=== PATIENT | female | born 1935 | race Caucasian/White ===

== ENCOUNTER 2018-10-07 07:39 | Inpatient (IN) ==
--- NOTE | 2018-10-07 14:04 | P.CONURO ---
History of Present Illness Service: Urology Consult date: 10/07/18 Reason for Consult: Left renal dilatation Primary Care Provider: Taco Middleton MD Chief Complaint: Abd pain History of Present Illness: 83y.o F transferred for [facility] to [facility]. She was admitted for abd pain R>L, N/V, no fever. Urology consulted for Left sided renal pelvis dilatation. Possibly has UTI. Her records from [facility] are not available for review She is a pt of Dr Pearl at [facility]. 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 She does have mild urinary retention, last time she was seen by Dr Pearl on and PVR was 220cc. She does get UTIs on/off and recently was given Bactrim for it. Also possibility of her having AK now is not excluded. She does have issues with constipation, last BM had 2d/a Review of Systems All other systems reviewed negative except as stated in HPI PMFSH - History History Provided By: Patient, Family Member - Medical History Medical History: Medical History (Last Reviewed 10/07/18 @ 08:21 by Cintia Amaro RN) Hip fracture Patient denies medical problems - Tobacco History Second Hand Smoke Exposure: No Smoking Status: Never smoker - Alcohol History How Often Do You Have a Drink Containing Alcohol: Never - Substance Use History Substance History: No History of Abuse Medications and Allergies Active Medications: Active Medications Ondansetron HCl (Zofran Odt) 4 mg PO Q6H PRN PRN Reason: nausea Sodium Chloride (Ns Flush) 2 ml IV.FLUSH BID KELVIN Sodium Chloride (Ns Flush) 2 ml IV.FLUSH UNSCH PRN PRN Reason: FLUSH AFTER USING IV ACCESS Allergies Allergy/AdvReac Type Severity Reaction Status Date / Time ciprofloxacin [From Cipro] Allergy Rash Verified 10/07/18 07:55 Home Medications Medication Instructions Recorded Confirmed Type hydrocodone-acetaminophen 1 tab PO Q4-6H PRN 10/07/18 10/07/18 History tetrahydrozoline-zinc [Eye 10/07/18 History Drops(tetrahydroz-zn sulf)] Physical Exam Physical Exam: GENERAL: This is a well-nourished, well-developed patient, in no apparent distress. SKIN: No rashes, ecchymoses or lesions. Cool and dry. HEAD: Atraumatic. Normocephalic. CARDIOVASCULAR: Regular rate and rhythm without murmurs, gallops, or rubs. RESPIRATORY: Clear to auscultation. Breath sounds equal bilaterally. No wheezes , rales, or rhonchi. GASTROINTESTINAL: Abdomen soft, RLQ is more tender. GENITOURINARY: MUSCULOSKELETAL: Extremities without clubbing, cyanosis, or edema. NEUROLOGICAL: Awake and alert. Assessment and Plan - Plan 83y.o F with history as per HPI - No acute intervention needed She has chronic Lt UPJ obstruction which is stable - Continue care as per primary team - Treat UTI as per C&S - Needs additional evaluation for her right sided abd pain Urology remains available as needed if more urological findings will be available and required our recommendations Otherwise pt to f/u with Dr Pearl after d/c Discussed Condition With: Dr Michelle ROYAL attending and pt's RN
--- NOTE | 2018-10-07 14:26 | P.HP ---
History of Present Illness Primary Care Physician: Taco Middleton MD Chief Complaint: Abd pain History of Present Illness: 83-year-old white female being admitted for abdominal pain. Patient was in her usual state of health until this morning when she experienced experiencing right-sided abdominal pain which at its worst was 10/ 10 intensity. She did have some nausea and self-limited vomiting. Reports that she did not take her hydrocodone on her most recent dose time otherwise. Denies any chest pain shortness of breath. Denies any fevers or chills. Reports she had said substantial urinary urgency but no dysuria or pyuria or stone excretion. Her grandson is at the bedside and says that she is very stubborn about seeking medical attention so he was concerned when she wanted to go to the hospital. In the emergency department and [place] the patient had a very minimal white count elevation but noted to have innumerable white blood cells on her urine. Noted to have acute kidney injury with creatinine about 1.2. Noted to be very hypertensive with BP is greater than 200s/100s. Patient was given IV morphine and IV antihypertensives and given Rocephin as well as aspirin. EKG which adamantly reviewed obtained from the ED shows right bundle branch block but no acute findings concerning for ischemia or infarction. 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 Now that the patient is arrived to the main hospital, she feels much better, still has some right-sided pain, and her second troponin is now greater than 2.0. Patient states she takes hydrocodone chronically for osteoarthritis. Says she has history of multiple fractures due to osteoporosis. Says she sees urology for her chronic left renal pelvis issues. Review of Systems All other systems reviewed negative except as stated in HPI PMFSH - History History Provided By: Patient, Family Member - Medical History Medical History: Medical History (Last Updated 10/07/18 @ 14:33 by Good Novoa MD) Hip fracture (Acute) Patient denies medical problems - Family History Family History: Family History (Last Updated 10/07/18 @ 14:33 by Good Novoa MD) Son Cancer - Social History I have reviewed the patient's Social History: Yes - Tobacco History Second Hand Smoke Exposure: No Smoking Status: Never smoker - Alcohol History How Often Do You Have a Drink Containing Alcohol: Never - Substance Use History Substance History: No History of Abuse Medications and Allergies Active Medications: Active Medications Methylnaltrexone [place] (Relistor) 12 mg SQ ONCE ONE Stop: 10/07/18 14:24 Ondansetron HCl (Zofran Odt) 4 mg PO Q6H PRN PRN Reason: nausea Sodium Chloride (Ns Flush) 2 ml IV.FLUSH BID KELVIN Sodium Chloride (Ns Flush) 2 ml IV.FLUSH UNSCH PRN PRN Reason: FLUSH AFTER USING IV ACCESS Allergies Allergy/AdvReac Type Severity Reaction Status Date / Time ciprofloxacin [From Cipro] Allergy Rash Verified 10/07/18 07:55 Home Medications Medication Instructions Recorded Confirmed Type hydrocodone-acetaminophen 1 tab PO Q4-6H PRN 10/07/18 10/07/18 History tetrahydrozoline-zinc [Eye 10/07/18 History Drops(tetrahydroz-zn sulf)] Exam Narrative: VS: afebrile GENERAL: Elderly female, well-nourished, no acute distress at this time SKIN: Warm and dry. EYES: No scleral icterus. No injection or drainage. ENT: No nasal bleeding or discharge. Dry oral mucous membranes. CARDIOVASCULAR: Regular rate and rhythm. no murmurs RESPIRATORY: No accessory muscle use. Clear to auscultation. Breath sounds equal bilaterally. GASTROINTESTINAL: Abdomen is most prominently tender to a mild to moderate extent upon deep palpation over the right upper and lower quadrants, minimally over the epigastrium and suprapubic areas, none on the left : No CVA tenderness to percussion bilaterally Extremities: No clubbing, cyanosis, or edema. No obvious deformities. MUSCULOSKELETAL: adequate muscle bulk and tone for age and habitus NEUROLOGICAL: Awake and alert. No obvious cranial nerve deficits. No facial droop nor slurred speech noted. PSYCHIATRIC: Appropriate mood and affect; insight and judgment normal. Results - Labs Labs: Laboratory Results - last 24 hr 10/07/18 13:38 Troponin I 2.08 H* D Caprini VTE Risk Assessment Caprini VTE Risk Assessment: Moderate/High Risk (score >= 2) Caprini Risk Assessment Model: Point Value = 1 Point Value = 2 Point Value = 3 Point Value = 5 Age 41-60 Minor surgery BMI > 25 kg/m2 Swollen legs Varicose veins or History of unexplained or recurrent spontaneous Oral contraceptives or hormone replacement Sepsis (< 1 month) Serious lung disease, including pneumonia (< 1 month) Abnormal pulmonary function Acute myocardial infarction Congestive heart failure (< 1 month) History of inflammatory bowel disease Medical patient at bed rest Age 61-74 Arthroscopic surgery Major open surgery (> 45 min) Laparoscopic surgery (> 45 min) Malignancy Confined to bed (> 72 hours) Immobilizing plaster cast Central venous access Age >= 75 History of VTE Family history of VTE Factor V Leiden Prothrombin [id number] Lupus anticoagulant Anticardiolipin antibodies Elevated serum homocysteine Heparin-induced thrombocytopenia Other congenital or acquired thrombophilia Stroke (< 1 month) Elective arthroplasty Hip, pelvis, or leg fracture Acute spinal cord injury (< 1 month) Prophylaxis Regimen: Total Risk Factor Score Risk Level Prophylaxis Regimen 0-1 Low Early ambulation 2 Moderate Order ONE of the following: *Sequential Compression Device (SCD) *Heparin 5000 units SQ BID 3-4 Higher Order ONE of the following medications: *Heparin 5000 units SQ TID *Enoxaparin/Lovenox 40 mg SQ daily (WT < 150 kg, CrCl > 30 mL/min) *Enoxaparin/Lovenox 30 mg SQ daily (WT < 150 kg, CrCl > 10-29 mL/min) *Enoxaparin/Lovenox 30 mg SQ BID (WT < 150 kg, CrCl > 30 mL/min) AND/OR *Sequential Compression Device (SCD) 5 or more Highest Order ONE of the following medications: *Heparin 5000 units SQ TID (Preferred with Epidurals) *Enoxaparin/Lovenox 40 mg SQ daily (WT < 150 kg, CrCl > 30 mL/min) *Enoxaparin/Lovenox 30 mg SQ daily (WT < 150 kg, CrCl > 10-29 mL/min) *Enoxaparin/Lovenox 30 mg SQ BID (WT < 150 kg, CrCl > 30 mL/min) AND *Sequential Compression Device (SCD) Assessment and Plan - Plan 83-year-old white female being admitted for abdominal pain Abdominal pain/N/V Multifactorial, constipation plus suspected pyelonephritis -Treat underlying issues, minimize narcotics -IVFs -appreciate urology input, no surgical intervention warranted -chronic left dilated renal pelvis Suspected pyelonephritis Copious WBCs Follow-up cultures, continue Rocephin, may expand antibiotics if symptoms worsen Constipation Enema, relistor given chronic hydrocodone use Hypertensive emergency -Possibly secondary to pain, IV antihypertensives as warranted -may need to start orals BP meds Elevated troponins now > 2.0 -likely 2/2 HTN emerg + ELZA -EKG RBB otherwise neg -Given aspirin in ED, will cover with Lipitor and start heparin drip and consult cardiology to ensure no further ischemic workup is warranted ELZA - IVFs heparin Discharge Planning: possible DC bishop if cleared w/ cards and tolerate po intake.
[2018-10-07 15:47] LABS: Activated Partial Thrombo Time 25.1 sec (23.4-31.7); INR 1.1 Ratio
[2018-10-07] MEDS ORDERED: Heparin 10,000 UNITS/10 ML Vial (for IV use) IV.PUSH STA (16:55)
[2018-10-07] MEDS ORDERED: Methylnaltrexone Inj 12 MG/0.6 ML Vial SQ ONE (17:00)
--- NOTE | 2018-10-07 17:08 | P.CONCA ---
History of Present Illness Service: Cardiology Consult date: 10/07/18 Requesting Physician: Good Novoa Reason for Consult: Elevated Troponin Primary Care Provider: Taco Middleton MD Chief Complaint: Abd pain History of Present Illness: This is a 83-year-old female with a past medical history of osteoporosis and a hip fracture, she denies any other health history. She states that she developed right sided abdominal pain a few days ago that progressively worsened. She attempted to take of the pain at home in hopes that it would go away. She decided to seek treatment in the Emergency Department today due to the 07/22 right sided abdominal pain. She denied any CP, pressure, palpitations, dizziness, edema or SOB. Currently, she only complains of mild right sided abdominal pain that has improved. Review of Systems All other systems reviewed negative except as stated [facility] - History History Provided By: Patient, Family Member - Medical History Medical History: Medical History (Last Updated 10/07/18 @ 14:33 by Good Novoa MD) Hip fracture (Acute) Patient denies medical problems - Family History Family History: Family History (Last Updated 10/07/18 @ 14:33 by Good Novoa MD) Son Cancer - Tobacco History Second Hand Smoke Exposure: No Smoking Status: Never smoker - Alcohol History How Often Do You Have a Drink Containing Alcohol: Never - Substance Use History Substance History: No History of Abuse Medications and Allergies Allergies Allergy/AdvReac Type Severity Reaction Status Date / Time ciprofloxacin [From Cipro] Allergy Rash Verified 10/07/18 07:55 Home Medications Medication Instructions Recorded Confirmed Type hydrocodone-acetaminophen 1 tab PO Q4-6H PRN 10/07/18 10/07/18 History tetrahydrozoline-zinc [Eye 10/07/18 History Drops(tetrahydroz-zn sulf)] Active Medications: Active Medications Aspirin (Aspirin) 325 mg PO DAILY KELVIN Atorvastatin Calcium (Lipitor) 40 mg PO HS KELVIN Heparin Sodium/Dextrose (Heparin/D5w 25,000 U/250 Ml) 25,000 unit in 250 mls @ 6 mls/hr IV.CONT TITRATE PRN; Protocol PRN Reason: Per Protocol Methylnaltrexone [place] (Relistor) 12 mg SQ ONCE ONE Stop: 10/07/18 17:01 Ondansetron HCl (Zofran Odt) 4 mg PO Q6H PRN PRN Reason: nausea Sodium Chloride (Ns Flush) 2 ml IV.FLUSH BID KELVIN Sodium Chloride (Ns Flush) 2 ml IV.FLUSH UNSCH PRN PRN Reason: FLUSH AFTER USING IV ACCESS Exam Vital signs: Intake & Output 10/06/18 10/07/18 10/07/18 18:59 06:59 18:59 Weight 52.5 kg Other: Weight On Admission 52.5 kg - Constitutional no acute distress - Routine HEENT Exam Head: Present: normocephalic Eye: Present: PERRL ENT: Present: mucous membranes moist - Routine Neck Exam Present: supple - Routine Respiratory Exam Present: CTA bilaterally - Routine Cardiovascular Exam Present: S1, S2. Absent: murmur, gallop, rubs - Routine Abdominal Exam Present: normoactive bowel sounds Comments: abdomen is slightly distended. - Routine Extremities Exam Present: edema, full ROM, pulses intact, normal capillary refill. Absent: cyanosis, clubbing Comments: trace edema in the right lower extremity and 1-2+ edema in the left lower extremity. - Routine Skin Exam Present: intact - Routine Neurological Exam Present: oriented X3 Results Cardiac Enzymes 10/07/18 Range/Units 13:38 Troponin I 2.08 H* D (0.02-0.05) ng/mL Coagulation 10/07/18 Range/Units 15:12 PT 11.0 (9.8-11.6) sec APTT 25.1 (23.4-31.7) sec Intake and Output 10/07/18 10/07/18 10/07/18 06:59 14:59 22:59 Other: Weight 52.5 kg Weight On Admission 52.5 kg Patient Weight 10/08/18 06:59 Weight 52.5 kg Assessment and Plan - Assessment (1) Elevated troponin I level Code(s): R74.8 - Abnormal levels of other serum enzymes Status: Acute (2) Urinary tract infection Code(s): N39.0 - Urinary tract infection, site not specified Status: Acute (3) Hydronephrosis of left kidney Code(s): N13.30 - Unspecified hydronephrosis Status: Acute (4) Hip fracture Code(s): S72.009A - Fracture of unspecified part of neck of unspecified femur, initial encounter for closed fracture Status: Acute - Plan Patient's troponin level is elevated, we will monitor serial troponin levels and EKGs. Currently there are no signs of ACS, we will obtain a 2D echo to evaluate LV function. Urology evaluation in progress. Continue to monitor patient on telemetry. We will continue to monitor patient during hospitalization. She will follow up with Dr. Anna, her primary vegetable preparer. The patient was seen and evaluated by Dr. Salazar who participated in care, management and decision making. - Attending Attestation Patient seen and examined. I reviewed and agree with the evaluation and plan as presented. Continue monitoring. Serial enzymes and EKGs. Check echo. (2) Urinary tract infection Qualifiers: Urinary tract infection type: site unspecified Hematuria presence: with hematuria Qualified Code(s): N39.0 - Urinary tract infection, site not specified; R31.9 - Hematuria, unspecified
[2018-10-07] MEDS: Heparin Drip 25,000 UNIT/250 ML BAG IV.CONT PRN (17:43)
[2018-10-08 02:09] LABS: Hematocrit 39.1 % (35.0-46.0); Hemoglobin 13.2 gm/dL (11.6-15.3); Mean Corpuscular HGB Conc 33.7 % (32.0-36.0); Mean Corpuscular Hemoglobin 34.9 pg (27.0-34.0); Mean Corpuscular Volume 103.5 fL (80.0-100.0); Mean Platelet Volume 8.6 fL (7.0-11.0); Platelet Count 185 th/mm3 (150-450); Red Blood Count 3.78 mil/mm3 (4.00-5.30); Red Cell Distribution Width 14.4 % (11.6-17.2); White Blood Count 9.7 th/mm3 (4.0-11.0)
[2018-10-08] MEDS ORDERED: Naloxone Inj 0.4 MG/ML Vial IV.PUSH PRN (10:41)
[2018-10-08] MEDS ORDERED: Acetaminophen 325 MG Tablet PO PRN (10:41)
[2018-10-08] MEDS: dilTIAZem Inj 125 MG in Sodium Chlor 0.9% Inj 100 ML IV.CONT PRN ×2 (11:41→20:18)
[2018-10-08 12:30] LABS: Alanine Aminotransferase 26 U/L (10-53); Alkaline Phosphatase 63 U/L (45-117); Anion Gap 7 meq/L (5-15); Aspartate Aminotransferase 34 U/L (15-37); Blood Urea Nitrogen 19 mg/dL (7-18); Calcium 8.2 mg/dL (8.5-10.1); Carbon Dioxide 27.8 meq/L (21.0-32.0); Chloride 100 meq/L (98-107); Glomerular Filtration Rate 59 mL/min (>89); Glucose,Random 121 mg/dL (74-106); Phosphorus 2.2 mg/dL (2.5-4.9); Potassium 3.9 meq/L (3.5-5.1); Sodium 135 meq/L (136-145); Total Protein 6.5 g/dL (6.4-8.2)
[2018-10-08 12:33] LABS: Troponin I 2.84 ng/mL (0.02-0.05)
[2018-10-08] MEDS: Aspirin 325 MG Tablet PO SCH (12:34)
[2018-10-08] MEDS ORDERED: Potassium Chlor 20 mEq Premix 20 MEQ/100 ML PIGGYBACK IV.SIG ONE (13:05)
[2018-10-08] MEDS ORDERED: Metoprolol Tartrate 25 MG Tablet PO SCH (13:15)
--- NOTE | 2018-10-08 13:32 | ECHRPT ---
Indication: LV FXN CONCLUSIONS Normal left ventricular size. Wall thickness is measured at the upper limits of normal. The left ventricular systolic function is normal with an estimated ejection fraction in the range of 60-65%. The left atrial size is mildly dilated. Mitral annular calcification is present. Mild mitral valve regurgitation. Aortic valve sclerosis is present. Mild aortic valve regurgitation. Tricuspid valve prolapse versus cannot exclude flail tricuspid valve leaflets. Clinical correlation recommended. The estimated pulmonary arterial pressure is 53 mmHg. BP: / HR: Rhythm: MEASUREMENTS (Male / Female) Normal Values Technical Quality: 2D ECHO LV Diastolic Diameter PLAX 4.4 cm 4.2 - 5.9 / 3.9 - 5.3 cm LV Systolic Diameter PLAX 3.4 cm IVS Diastolic Thickness 1.0 cm 0.6 - 1.0 / 0.6 - 0.9 cm LVPW Diastolic Thickness 0.7 cm 0.6 - 1.0 / 0.6 - 0.9 cm LV Relative Wall Thickness 0.4 DOPPLER AV Peak Velocity 202.0 cm/s AV Peak Gradient 16.3 mmHg AI Peak Velocity 434.0 cm/s AI Peak Gradient 75.3 mmHg AI Pressure Half Time 462.0 ms LVOT Peak Velocity 124.0 cm/s LVOT Peak Gradient 6.2 mmHg MV Peak Velocity 161.0 cm/s MV Peak Gradient 10.4 mmHg MV Mean Velocity 66.9 cm/s MV Mean Gradient 2.0 mmHg MR Peak Velocity 583.5 cm/s MR Peak Gradient 136.2 mmHg Mitral E Point Velocity 69.1 cm/s Mitral A Point Velocity 112.0 cm/s Mitral E to A Ratio 0.6 LV E' Lateral Velocity 5.6 cm/s Mitral E to LV E' Lateral Ratio 12.4 LV E' Septal Velocity 6.0 cm/s Mitral E to LV E' Septal Ratio 11.5 TR Peak Velocity 328.0 cm/s TR Peak Gradient 43.0 mmHg Right Atrial Pressure 10.0 mmHg Pulmonary Artery Systolic Pressu 53.0 mmHg Right Ventricular Systolic Press 53.0 mmHg FINDINGS LEFT VENTRICLE Normal left ventricular size. Wall thickness is measured at the upper limits of normal. The left ventricular systolic function is normal with an estimated ejection fraction in the range of 60-65%. RIGHT VENTRICLE Normal right ventricular size and systolic function. LEFT ATRIUM The left atrial size is mildly dilated. RIGHT ATRIUM The right atrial size is normal. ATRIAL SEPTUM Normal atrial septal thickness without atrial level shunting by limited color doppler interrogation. AORTA The aortic root and proximal ascending aorta are normal in size on limited imaging. MITRAL VALVE Mitral annular calcification is present. Mild mitral valve regurgitation. No mitral valve stenosis. AORTIC VALVE Aortic valve sclerosis is present. Mild aortic valve regurgitation. No aortic valve stenosis. TRICUSPID VALVE Mild thickening of the tricuspid valve leaflets. Tricuspid valve prolapse versus cannot exclude flail tricuspid valve leaflets. Clinical correlation recommended. The estimated pulmonary arterial pressure is 53 mmHg. PULMONARY VALVE No pulmonary valve regurgitation or stenosis. VESSELS The inferior vena cava is normal in size. PERICARDIUM No pericardial effusion. Ken Emmanuel (Electronically Signed) Final Date:08 October 2018 13:32
[2018-10-08] MEDS ORDERED: Potassium Phosphate Inj 15 MMOL in Sodium Chlor 0.9% Inj 150 ML IV.SIG ONE (14:00)
--- NOTE | 2018-10-08 14:12 | P.PNCA ---
Subjective Interval history: Patient denies any CP, pressure, palpitations, dizziness, edema or palpitations. Medications and Allergies Active Medications: Active Medications Acetaminophen (Tylenol) 650 mg PO Q6HR PRN PRN Reason: PAIN SCALE 1 TO 2 Hydrocodone Bitart/Acetaminophen ([place] 10/325) 1 tab PO Q6H PRN PRN Reason: PAIN SCALE 6 TO 10 Last Admin: 10/08/18 11:52 Dose: 1 tab Aspirin (Aspirin) 325 mg PO DAILY [facility] Last Admin: 10/08/18 12:34 Dose: Not Given Atorvastatin Calcium (Lipitor) 40 mg PO HS [facility] Cyclobenzaprine HCl (Flexeril) 5 mg PO Q8H PRN PRN Reason: CRAMPS Heparin Sodium/Dextrose (Heparin/D5w 25,000 U/250 Ml) 25,000 unit in 250 mls @ 6 mls/hr IV.CONT TITRATE PRN; Protocol PRN Reason: Per Protocol Last Titration: 10/08/18 02:32 Dose: 700 units/hr, 7 mls/hr Diltiazem HCl 125 mg/ Sodium (Chloride) 125 mls @ 10 mls/hr IV.CONT TITRATE PRN ; Protocol PRN Reason: Per Protocol Last Admin: 10/08/18 11:41 Dose: 10 mg/hr, 10 mls/hr Potassium Phosphate 15 mmol/ (Sodium Chloride) 155 mls @ 38.75 mls/hr IV.SIG ONCE ONE Stop: 10/08/18 17:59 Potassium Chloride (Kcl 20 Meq Premix Inj) 20 meq in 100 mls @ 50 mls/hr IV.SIG ONCE ONE Stop: 10/08/18 15:04 Metoprolol Tartrate (Lopressor) 25 mg PO BID [facility] Naloxone HCl (Narcan Inj) 0.4 mg IV.PUSH UNSCH PRN PRN Reason: SEE LABEL COMMENTS Ondansetron HCl (Zofran Odt) 4 mg PO Q6H PRN PRN Reason: nausea Pantoprazole Sodium (Protonix) 40 mg PO DAILY [facility] Sodium Chloride (Ns Flush) 2 ml IV.FLUSH BID [facility] Last Admin: 10/08/18 11:11 Dose: 2 ml Sodium Chloride (Ns Flush) 2 ml IV.FLUSH UNSCH PRN PRN Reason: FLUSH AFTER USING IV ACCESS Tramadol HCl (Ultram) 50 mg PO Q4H PRN PRN Reason: PAIN SCALE 3 TO 5 Allergies Allergy/AdvReac Type Severity Reaction Status Date / Time ciprofloxacin [From Cipro] Allergy Rash Verified 10/07/18 07:55 Home Medications Medication Instructions Recorded Confirmed Type hydrocodone-acetaminophen 1 tab PO Q4-6H PRN 10/07/18 10/08/18 History tetrahydrozoline-zinc [Eye 10/07/18 History Drops(tetrahydroz-zn sulf)] Physical Exam Vital signs: Vital Signs 10/07/18 15:00 10/07/18 15:03 10/07/18 16:00 Temperature 97.9 F Pulse Rate 92 H 92 H 83 Respiratory Rate 26 H 25 H 18 Blood Pressure 143/64 H 149/65 H Pulse Oximetry 97 96 10/07/18 17:00 10/07/18 18:00 10/07/18 19:00 Temperature Pulse Rate 87 94 H 97 H Respiratory Rate 21 Blood Pressure 160/63 H 143/63 H Pulse Oximetry 99 96 97 10/07/18 19:15 10/07/18 20:00 10/07/18 21:00 Temperature 98.6 F Pulse Rate 93 H 91 H 94 H Respiratory Rate Blood Pressure 132/60 127/93 H 145/65 H Pulse Oximetry 100 98 99 10/07/18 22:00 10/07/18 23:00 10/07/18 23:29 Temperature Pulse Rate 107 H 108 H 101 H Respiratory Rate Blood Pressure 152/68 H 151/88 H Pulse Oximetry 98 95 10/08/18 00:00 10/08/18 01:00 10/08/18 01:01 Temperature 97.7 F Pulse Rate 94 H 88 Respiratory Rate 22 98 H 20 Blood Pressure 144/65 H 150/67 H Pulse Oximetry 99 96 10/08/18 02:00 10/08/18 03:00 10/08/18 03:03 Temperature Pulse Rate 94 H 92 H 96 H Respiratory Rate 24 22 22 Blood Pressure 159/74 H 150/105 H 166/72 H Pulse Oximetry 97 98 98 10/08/18 04:00 10/08/18 06:00 10/08/18 08:00 Temperature 98.0 F Pulse Rate 79 79 Respiratory Rate 21 20 Blood Pressure 123/59 L Pulse Oximetry 98 Intake & Output 10/07/18 10/08/18 10/08/18 18:59 06:59 18:59 Intake Total 240 / 240 Balance 240 / 240 Weight 52.5 kg 52.5 kg Intake: Oral 240 / 240 Other: # Voids 2 4 Date of Last Bowel Movement 10/05/18 10/08/18 10/08/18 # Bowel Movements 3 Weight On Admission 52.5 kg - Constitutional no acute distress - Routine HEENT Exam Head: Present: normocephalic Eye: Present: PERRL ENT: Present: mucous membranes moist - Routine Neck Exam Present: supple - Routine Respiratory Exam Present: CTA bilaterally - Routine Cardiovascular Exam Present: S1, S2, tachycardia, irregular rhythm. Absent: murmur, gallop - Routine Abdominal Exam Present: normoactive bowel sounds - Routine Extremities Exam Present: full ROM, pulses intact, normal capillary refill. Absent: cyanosis, clubbing, edema - Routine Skin Exam Present: intact - Routine Neurological Exam Present: oriented X3 - Detailed Neurological Exam: Coma Scale Eye Opening: Spontaneous Verbal Response: Oriented Motor Response: Obey commands [place] Coma Scale Total: 15 - Routine Psychiatric Exam Present: normal affect Results 10/08/18 02:00 10/08/18 11:45 Cardiac Enzymes 10/07/18 10/07/18 10/08/18 Range/Units 13:38 17:50 11:45 AST 34 (15-37) U/L Troponin I 2.08 H* D 2.72 H* D 2.84 H* D (0.02-0.05) ng/mL Coagulation 10/07/18 10/07/18 10/08/18 Range/Units 15:12 20:35 02:00 PT 11.0 (9.8-11.6) sec APTT 25.1 35.2 H D 53.0 H D (23.4-31.7) sec 10/08/18 Range/Units 08:17 PT (9.8-11.6) sec APTT 52.0 H (23.4-31.7) sec CBC 10/08/18 Range/Units 02:00 WBC 9.7 (4.0-11.0) th/mm3 RBC 3.78 L (4.00-5.30) mil/mm3 Hgb 13.2 (11.6-15.3) gm/dL Hct 39.1 (35.0-46.0) % Plt Count 185 (150-450) th/mm3 Comprehensive Metabolic Panel 10/08/18 Range/Units 11:45 Sodium 135 L (136-145) meq/L Potassium 3.9 (3.5-5.1) meq/L Chloride 100 (98-107) meq/L Carbon Dioxide 27.8 (21.0-32.0) meq/L BUN 19 H (7-18) mg/dL Creatinine 0.91 (0.50-1.00) mg/dL Calcium 8.2 L (8.5-10.1) mg/dL AST 34 (15-37) U/L ALT 26 (10-53) U/L Alkaline Phosphatase 63 (45-117) U/L Total Protein 6.5 D (6.4-8.2) g/dL Albumin 3.0 L D (3.4-5.0) g/dL Intake and Output 10/07/18 10/08/18 10/08/18 22:59 06:59 14:59 Intake Total 240 / 240 Balance 240 / 240 Intake: Oral 240 / 240 Other: # Voids 2 4 Date of Last Bowel Movement 10/07/18 10/08/18 10/08/18 # Bowel Movements 3 Weight 52.5 kg Assessment and Plan - Assessment (1) Atrial fibrillation Code(s): I48.91 - Unspecified atrial fibrillation Status: Acute (2) Elevated troponin I level Code(s): R74.8 - Abnormal levels of other serum enzymes Status: Acute (3) Urinary tract infection Code(s): N39.0 - Urinary tract infection, site not specified Status: Inactive (4) Hydronephrosis of left kidney Code(s): N13.30 - Unspecified hydronephrosis Status: Inactive (5) Hip fracture Code(s): S72.009A - Fracture of unspecified part of neck of unspecified femur, initial encounter for closed fracture Status: Acute - Plan Patient went into atrial fibrillation with RVR earlier today, continue Cardizem gtt for rate control. Continue Heparin gtt for anticoagulation. Patient's vital signs are stable at this time. 2D echo showed preserved LV function EF 60-65%, mild mitral regurgitation and mild aortic regurgitation. Troponin levels continue to increase, we will treat conservatively at this time and continue to monitor. Continue to monitor patient on telemetry. We will continue to monitor patient during hospitalization. She will follow up with Dr. Anna, her primary bark fitter. The patient was seen and evaluated by Dr. Salazar who participated in care, management and decision making. (3) Urinary tract infection Qualifiers: Urinary tract infection type: site unspecified Hematuria presence: with hematuria Qualified Code(s): N39.0 - Urinary tract infection, site not specified; R31.9 - Hematuria, unspecified
[2018-10-08] MEDS: Metoprolol Tartrate 25 MG Tablet PO SCH ×2 (14:22→20:34)
--- NOTE | 2018-10-08 16:50 | P.PNIM ---
Subjective Interval history: Patient complains of neck pain and feeling uncomfortable laying in bed. She has chronic back pain secondary to osteoporosis and osteoarthritis she denies any heart palpitations shortness of breath or any dizziness. She denies any chest pain. Physical Exam Vital signs: Last Vital Signs Temp 98.6 F 10/08/18 12:00 Pulse 114 H 10/08/18 15:00 Resp 16 10/08/18 15:00 BP 99/55 L 10/08/18 14:46 Pulse Ox 98 10/08/18 15:00 Intake & Output 10/06/18 10/07/18 10/08/18 10/09/18 06:59 06:59 06:59 06:59 Intake Total 240 / 240 Balance 240 / 240 Weight 52.5 kg Narrative: This is a frail thin well-developed white female in no acute distress Cardiovascular irregular rate irregular rhythm Lungs relatively clear to auscultation bilaterally Abdomen soft nontender mildly distended positive bowel sounds Alert oriented to person place and time moves bilateral upper and lower extremities Results Labs CBC & Chem 7: 10/08/18 02:00 10/08/18 11:45 Labs: Microbiology 10/07/18 21:30 Stool Stool Occult Blood (ASHLEY) - Final Hemoccult negative Assessment and Plan (1) Atrial fibrillation: Code(s): I48.91 - Unspecified atrial fibrillation Status: Acute (2) Elevated troponin I level: Code(s): R74.8 - Abnormal levels of other serum enzymes Status: Acute (3) Urinary tract infection: Code(s): N39.0 - Urinary tract infection, site not specified Status: Inactive (4) Hydronephrosis of left kidney: Code(s): N13.30 - Unspecified hydronephrosis Status: Inactive (5) Hip fracture: Code(s): S72.009A - Fracture of unspecified part of neck of unspecified femur, initial encounter for closed fracture Status: Acute Plan 83-year-old white female presented for abdominal pain but found to have [id number] trended up, patient with a history of hypertension urgency along with acute kidney injury -continue heparin drip per cardiology. Continue medical management Aspirin, beta-denzel, Lipitor, check fasting lipid profile New onset of atrial fibrillation with rapid ventricular rate-Cardizem drip has been initiated along with starting p.o. metoprolol. Continue heparin, further recognitions per cardiology. Sotalol also started by cardiology 2D echo showed normal ejection fraction left atrial size mildly dilated mild mitral and aortic valve regurgitation Suspected pyelonephritiscontinue with Rocephin, follow with urine culture, preliminary shows gram-negative rods History of constipationstatus post enema, continue with bowel regimen Hypertensive emergency on presentationnow with controlled BP Acute kidney injurynow resolved with IV fluid hydration Chronic back pain on chronic narcoticscontinue pain control with bowel regimen. DVT prophylaxisheparin Progress Note: Quality VTE Deep Vein Thrombosis/Pulmonary Embolism Present on Admission: No _ (1) Atrial fibrillation Qualifiers: Atrial fibrillation type: (2) Urinary tract infection Qualifiers: Encounter type: Hematuria presence: with hematuria Indwelling urinary catheter type: Urinary tract infection type: site unspecified Qualified Code( s): N39.0 - Urinary tract infection, site not specified; R31.9 - Hematuria, unspecified (3) Hip fracture Qualifiers: Encounter type: Fracture type: Open fracture type: Laterality: Fracture healing:
[2018-10-08] MEDS: Sod Chloride 0.9% Inj 1,000 ML IV.SIG SCH (23:53)
[2018-10-09] MEDS: Heparin Drip 25,000 UNIT/250 ML BAG IV.CONT PRN (05:08)
[2018-10-09 06:00] LABS: Baso % (Auto) 0.1 % (0.0-2.0); Eos % (Auto) 0.1 % (0.0-4.0); Hematocrit 33.6 % (35.0-46.0); Hemoglobin 11.7 gm/dL (11.6-15.3); Lymph # (Auto) 0.5 th/mm3 (1.0-4.8); Lymph % (Auto) 4.3 % (9.0-44.0); Mean Corpuscular HGB Conc 34.8 % (32.0-36.0); Mean Corpuscular Hemoglobin 36.4 pg (27.0-34.0); Mean Corpuscular Volume 104.8 fL (80.0-100.0); Mean Platelet Volume 9.3 fL (7.0-11.0); Mono # (Auto) 1.1 th/mm3 (0.0-0.9); Mono % (Auto) 9.9 % (0.0-8.0); Neut # (Auto) 9.1 th/mm3 (1.8-7.7); Neut % (Auto) 85.6 % (16.0-70.0); Platelet Count 165 th/mm3 (150-450); Red Cell Distribution Width 14.5 % (11.6-17.2); White Blood Count 10.7 th/mm3 (4.0-11.0)
[2018-10-09 06:27] LABS: Calcium 8.2 mg/dL (8.5-10.1); Carbon Dioxide 26.2 meq/L (21.0-32.0); Potassium 4.1 meq/L (3.5-5.1)
[2018-10-09 06:29] LABS: Chol/HDL Ratio 1.96 Ratio; HDL Cholesterol 45.2 mg/dL (40.0-60.0)
[2018-10-09] MEDS: Aspirin 325 MG Tablet PO SCH (09:53)
[2018-10-09] MEDS: Sod Chloride 0.9% Inj 1,000 ML IV.SIG SCH ×2 (10:11→21:01)
--- NOTE | 2018-10-09 13:49 | P.PNCA ---
Subjective Interval history: Patient denies any CP, pressure, palpitations, dizziness, edema or SOB. Patient states that she feels pretty good. Medications and Allergies Allergies Allergy/AdvReac Type Severity Reaction Status Date / Time ciprofloxacin [From Cipro] Allergy Rash Verified 10/07/18 07:55 Home Medications Medication Instructions Recorded Confirmed Type hydrocodone-acetaminophen 1 tab PO Q4-6H PRN 10/07/18 10/09/18 History tetrahydrozoline-zinc [Eye 10/07/18 History Drops(tetrahydroz-zn sulf)] Active Medications: Active Medications Acetaminophen (Tylenol) 650 mg PO Q6HR PRN PRN Reason: PAIN SCALE 1 TO 2 Hydrocodone Bitart/Acetaminophen ([place] 10/325) 1 tab PO Q6H PRN PRN Reason: PAIN SCALE 6 TO 10 Last Admin: 10/08/18 18:25 Dose: 1 tab Aspirin (Aspirin) 325 mg PO DAILY [facility] Last Admin: 10/09/18 09:53 Dose: 325 mg Atorvastatin Calcium (Lipitor) 40 mg PO HS [facility] Last Admin: 10/08/18 20:34 Dose: 40 mg Cyclobenzaprine HCl (Flexeril) 5 mg PO Q8H PRN PRN Reason: CRAMPS Heparin Sodium/Dextrose (Heparin/D5w 25,000 U/250 Ml) 25,000 unit in 250 mls @ 6 mls/hr IV.CONT TITRATE PRN; Protocol PRN Reason: Per Protocol Last Admin: 10/09/18 05:08 Dose: 700 units/hr, 7 mls/hr Diltiazem HCl 125 mg/ Sodium (Chloride) 125 mls @ 10 mls/hr IV.CONT TITRATE PRN ; Protocol PRN Reason: Per Protocol Last Titration: 10/09/18 05:30 Dose: 2.5 mg/hr, 2.5 mls/hr Sodium Chloride (Ns Inj) 1,000 mls @ 50 mls/hr IV.SIG .Q20H [facility] Last Admin: 10/09/18 10:11 Dose: 50 mls/hr Naloxone HCl (Narcan Inj) 0.4 mg IV.PUSH UNSCH PRN PRN Reason: SEE LABEL COMMENTS Ondansetron HCl (Zofran Odt) 4 mg PO Q6H PRN PRN Reason: nausea Last Admin: 10/08/18 15:59 Dose: 4 mg Pantoprazole Sodium (Protonix) 40 mg PO DAILY [facility] Last Admin: 10/09/18 09:53 Dose: 40 mg Sodium Chloride (Ns Flush) 2 ml IV.FLUSH BID [facility] Last Admin: 10/09/18 09:55 Dose: 2 ml Sodium Chloride (Ns Flush) 2 ml IV.FLUSH UNSCH PRN PRN Reason: FLUSH AFTER USING IV ACCESS Sotalol HCl (Betapace) 80 mg PO BID [facility] Last Admin: 10/09/18 09:53 Dose: 80 mg Tramadol HCl (Ultram) 50 mg PO Q4H PRN PRN Reason: PAIN SCALE 3 TO 5 Last Admin: 10/08/18 15:55 Dose: 50 mg Physical Exam Vital signs: Vital Signs 10/08/18 14:00 10/08/18 14:01 10/08/18 14:16 Temperature Pulse Rate 122 H 123 H 127 H Respiratory Rate 21 20 40 H Blood Pressure 122/57 L 119/56 L Pulse Oximetry 97 97 98 10/08/18 14:35 10/08/18 14:46 10/08/18 15:00 Temperature Pulse Rate 129 H 115 H 114 H Respiratory Rate 29 H 25 H 16 Blood Pressure 115/65 99/55 L Pulse Oximetry 97 96 98 10/08/18 15:06 10/08/18 15:16 10/08/18 15:19 Temperature Pulse Rate 110 H 100 H 104 H Respiratory Rate 23 20 21 Blood Pressure 102/62 89/72 L 103/60 Pulse Oximetry 96 98 97 10/08/18 15:31 10/08/18 15:46 10/08/18 16:00 Temperature Pulse Rate 103 H 96 H 96 H Respiratory Rate 22 13 30 H Blood Pressure 114/60 114/58 L Pulse Oximetry 98 97 94 L 10/08/18 16:01 10/08/18 16:16 10/08/18 16:31 Temperature Pulse Rate 98 H 98 H Respiratory Rate 25 H 26 H Blood Pressure 101/57 L 115/56 L 116/64 Pulse Oximetry 94 L 96 10/08/18 16:46 10/08/18 17:00 10/08/18 17:01 Temperature Pulse Rate 100 H 96 H 95 H Respiratory Rate 32 H 18 33 H Blood Pressure 125/62 132/59 L Pulse Oximetry 97 97 97 10/08/18 17:16 10/08/18 17:31 10/08/18 17:46 Temperature Pulse Rate 103 H 102 H 100 H Respiratory Rate 28 H 20 22 Blood Pressure 130/65 145/75 H 143/68 H Pulse Oximetry 97 98 98 10/08/18 18:00 10/08/18 18:01 10/08/18 18:16 Temperature Pulse Rate 108 H 107 H 101 H Respiratory Rate 31 H 26 H 20 Blood Pressure 134/77 128/60 Pulse Oximetry 97 96 97 10/08/18 18:25 10/08/18 18:31 10/08/18 18:46 Temperature Pulse Rate 107 H 103 H Respiratory Rate 28 H 28 H 25 H Blood Pressure 122/57 L 101/61 Pulse Oximetry 97 97 10/08/18 19:00 10/08/18 19:01 10/08/18 19:16 Temperature Pulse Rate 100 H 105 H 99 H Respiratory Rate 21 26 H 22 Blood Pressure 112/68 113/65 Pulse Oximetry 97 97 96 10/08/18 19:22 10/08/18 19:31 10/08/18 19:46 Temperature Pulse Rate 104 H 102 H Respiratory Rate 18 23 Blood Pressure 96/57 L 103/57 L Pulse Oximetry 97 96 96 10/08/18 20:00 10/08/18 20:16 10/08/18 20:55 Temperature 98.3 F Pulse Rate 106 H 98 H 109 H Respiratory Rate 25 H 22 18 Blood Pressure 99/74 L 104/57 L 104/57 L Pulse Oximetry 97 95 94 L 10/08/18 21:00 10/08/18 21:05 10/08/18 21:20 Temperature Pulse Rate 96 H 91 H 88 Respiratory Rate 20 14 16 Blood Pressure 107/51 L 117/55 L 93/64 L Pulse Oximetry 94 L 95 95 10/08/18 21:35 10/08/18 22:00 10/08/18 22:20 Temperature Pulse Rate 87 98 H 92 H Respiratory Rate 23 15 15 Blood Pressure 103/56 L 124/59 L 108/54 L Pulse Oximetry 97 90 L 95 10/08/18 22:35 10/08/18 22:50 10/08/18 23:00 Temperature Pulse Rate 82 84 91 H Respiratory Rate 15 25 H 24 Blood Pressure 104/55 L 104/51 L 98/53 L Pulse Oximetry 96 95 97 10/08/18 23:20 10/08/18 23:50 10/09/18 00:00 Temperature Pulse Rate 78 77 76 Respiratory Rate 17 14 17 Blood Pressure 99/51 L 94/60 L 94/60 L Pulse Oximetry 96 95 94 L 10/09/18 00:20 10/09/18 00:50 10/09/18 01:00 Temperature Pulse Rate 83 74 77 Respiratory Rate 21 16 14 Blood Pressure 96/53 L 95/51 L 99/55 L Pulse Oximetry 90 L 95 95 10/09/18 01:20 10/09/18 01:35 10/09/18 01:50 Temperature Pulse Rate 80 79 81 Respiratory Rate 19 16 18 Blood Pressure 93/55 L 89/48 L 105/50 L Pulse Oximetry 96 96 96 10/09/18 02:00 10/09/18 02:20 10/09/18 02:35 Temperature Pulse Rate 80 85 83 Respiratory Rate 19 17 27 H Blood Pressure 91/52 L 96/51 L 102/56 L Pulse Oximetry 96 96 95 10/09/18 02:50 10/09/18 03:00 10/09/18 03:15 Temperature Pulse Rate 81 98 H 100 H Respiratory Rate 17 17 19 Blood Pressure 102/58 L 102/58 L 113/74 Pulse Oximetry 97 97 98 10/09/18 03:20 10/09/18 03:46 10/09/18 04:00 Temperature Pulse Rate 104 H 94 H 97 H Respiratory Rate 19 16 23 Blood Pressure 131/65 127/74 114/64 Pulse Oximetry 99 95 97 10/09/18 04:20 10/09/18 04:35 10/09/18 04:50 Temperature Pulse Rate 98 H 91 H 85 Respiratory Rate 16 15 16 Blood Pressure 121/67 101/56 L 97/56 L Pulse Oximetry 98 97 97 10/09/18 05:00 10/09/18 05:20 10/09/18 05:24 Temperature Pulse Rate 101 H 89 109 H Respiratory Rate 25 H 14 Blood Pressure 111/60 106/55 L Pulse Oximetry 87 L 97 10/09/18 05:35 10/09/18 05:50 10/09/18 05:55 Temperature Pulse Rate 94 H 95 H 107 H Respiratory Rate 18 16 17 Blood Pressure 90/54 L 100/55 L 106/53 L Pulse Oximetry 97 97 97 10/09/18 06:00 10/09/18 06:20 10/09/18 06:35 Temperature Pulse Rate 94 H 97 H 98 H Respiratory Rate 16 16 28 H Blood Pressure 102/56 L 114/53 L 102/54 L Pulse Oximetry 96 96 90 L 10/09/18 06:50 10/09/18 07:00 10/09/18 07:35 Temperature Pulse Rate 100 H 94 H 94 H Respiratory Rate 40 H 24 19 Blood Pressure 111/70 99/53 L 104/71 Pulse Oximetry 91 L 96 96 10/09/18 07:50 10/09/18 08:00 10/09/18 08:20 Temperature 97.8 F Pulse Rate 97 H 98 H Respiratory Rate 36 H 18 Blood Pressure 105/59 L 106/61 100/57 L Pulse Oximetry 88 L 97 10/09/18 08:35 10/09/18 09:00 10/09/18 09:20 Temperature Pulse Rate 98 H Respiratory Rate 18 Blood Pressure 105/55 L 95/51 L 115/57 L Pulse Oximetry 97 10/09/18 09:35 10/09/18 09:50 10/09/18 10:00 Temperature Pulse Rate 114 H Respiratory Rate 18 Blood Pressure 118/58 L 114/48 L 109/60 Pulse Oximetry 96 10/09/18 10:20 10/09/18 10:47 10/09/18 10:50 Temperature Pulse Rate Respiratory Rate Blood Pressure 111/58 L 102/58 L 101/56 L Pulse Oximetry 10/09/18 11:00 10/09/18 11:20 10/09/18 11:35 Temperature Pulse Rate 102 H 107 H Respiratory Rate 18 23 Blood Pressure 91/58 L 100/65 110/71 Pulse Oximetry 98 96 10/09/18 11:50 Temperature Pulse Rate Respiratory Rate Blood Pressure 104/54 L Pulse Oximetry Intake & Output 10/08/18 10/09/18 10/09/18 18:59 06:59 18:59 Intake Total 340 / 340 770 / 770 1450 / 1450 Output Total 325 / 325 125 / 125 Balance 340 / 340 445 / 445 1325 / 1325 Weight 58.5 kg Intake: IV 100 / 100 530 / 530 1000 / 1000 Heparin/D5W 25,000 U/250 mL 25, 250 / 250 000 unit In 250 ml @ 600 UNITS/ HR 6 mls/hr IV.CONT TITRATE PRN Rx#:[id number] Cardizem Inj 125 MG In NS Inj 125 / 125 100 ML @ 10 MG/HR 10 mls/hr IV. CONT TITRATE PRN Rx#:[id number] KCl 20 mEq Premix Inj 20 meq In 100 / 100 100 ml @ 50 mls/hr IV.SIG ONCE ONE Rx#:[id number] Potassium Phosphate Inj 15 MMOL 155 / 155 In NS Inj 150 ML @ 38.75 mls/ hr IV.SIG ONCE ONE Rx#:[id number] NS Inj 1,000 ML @ 50 mls/hr IV. 1000 / 1000 SIG .Q20H [facility] Rx#:[id number] Oral 240 / 240 240 / 240 450 / 450 Output: Urine 325 / 325 125 / 125 Other: # Voids 4 4 1 Date of Last Bowel Movement 10/08/18 10/08/18 10/08/18 # Bowel Movements 3 0 - Constitutional no acute distress - Routine HEENT Exam Head: Present: normocephalic Eye: Present: PERRL ENT: Present: mucous membranes moist - Routine Neck Exam Present: supple - Routine Respiratory Exam Present: CTA bilaterally - Routine Cardiovascular Exam Present: S1, S2, irregular rhythm - Routine Abdominal Exam Present: normoactive bowel sounds - Routine Extremities Exam Present: full ROM, pulses intact, normal capillary refill. Absent: cyanosis, clubbing, edema - Routine Skin Exam Present: intact - Routine Neurological Exam Present: oriented X3 - Detailed Neurological Exam: Coma Scale Eye Opening: Spontaneous Verbal Response: Oriented Motor Response: Obey commands [place] Coma Scale Total: 15 - Routine Psychiatric Exam Present: normal affect Results 10/09/18 05:33 10/09/18 05:33 Cardiac Enzymes 10/07/18 10/07/18 10/08/18 Range/Units 13:38 17:50 11:45 AST 34 (15-37) U/L Troponin I 2.08 H* D 2.72 H* D 2.84 H* D (0.02-0.05) ng/mL Coagulation 10/07/18 10/07/18 10/08/18 Range/Units 15:12 20:35 02:00 PT 11.0 (9.8-11.6) sec APTT 25.1 35.2 H D 53.0 H D (23.4-31.7) sec 10/08/18 10/08/18 10/09/18 Range/Units 08:17 20:46 05:33 PT (9.8-11.6) sec APTT 52.0 H 51.4 H 48.1 H (23.4-31.7) sec Lipids 10/09/18 Range/Units 05:33 Triglycerides 67 (42-150) mg/dL Cholesterol 89 L (120-200) mg/dL HDL Cholesterol 45.2 (40.0-60.0) mg/dL Cholesterol/HDL Ratio 1.96 Ratio CBC 10/08/18 10/09/18 Range/Units 02:00 05:33 WBC 9.7 10.7 (4.0-11.0) th/mm3 RBC 3.78 L 3.20 L (4.00-5.30) mil/mm3 Hgb 13.2 11.7 (11.6-15.3) gm/dL Hct 39.1 33.6 L (35.0-46.0) % Plt Count 185 165 (150-450) th/mm3 Neut # (Auto) 9.1 H (1.8-7.7) th/mm3 Lymph # (Auto) 0.5 L (1.0-4.8) th/mm3 [place] # (Auto) 1.1 H (0.0-0.9) th/mm3 Eos # (Auto) 0.0 (0.0-0.4) th/mm3 Baso # (Auto) 0.0 (0.0-0.2) th/mm3 Comprehensive Metabolic Panel 10/08/18 10/09/18 Range/Units 11:45 05:33 Sodium 135 L 136 (136-145) meq/L Potassium 3.9 4.1 (3.5-5.1) meq/L Chloride 100 103 (98-107) meq/L Carbon Dioxide 27.8 26.2 (21.0-32.0) meq/L BUN 19 H 20 H (7-18) mg/dL Creatinine 0.91 0.85 (0.50-1.00) mg/dL Calcium 8.2 L 8.2 L (8.5-10.1) mg/dL AST 34 (15-37) U/L ALT 26 (10-53) U/L Alkaline Phosphatase 63 (45-117) U/L Total Protein 6.5 D (6.4-8.2) g/dL Albumin 3.0 L D (3.4-5.0) g/dL Intake and Output 10/08/18 10/09/18 10/09/18 22:59 06:59 14:59 Intake Total 620 / 620 490 / 490 1450 / 1450 Output Total 325 / 325 125 / 125 Balance 620 / 620 165 / 165 1325 / 1325 Intake: IV 380 / 380 250 / 250 1000 / 1000 Heparin/D5W 25,000 U/250 mL 25, 250 / 250 000 unit In 250 ml @ 600 UNITS/ HR 6 mls/hr IV.CONT TITRATE PRN Rx#:[id number] Cardizem Inj 125 MG In NS Inj 125 / 125 100 ML @ 10 MG/HR 10 mls/hr IV. CONT TITRATE PRN Rx#:[id number] KCl 20 mEq Premix Inj 20 meq In 100 / 100 100 ml @ 50 mls/hr IV.SIG ONCE ONE Rx#:[id number] Potassium Phosphate Inj 15 MMOL 155 / 155 In NS Inj 150 ML @ 38.75 mls/ hr IV.SIG ONCE ONE Rx#:[id number] NS Inj 1,000 ML @ 50 mls/hr IV. 1000 / 1000 SIG .Q20H [facility] Rx#:[id number] Oral 240 / 240 240 / 240 450 / 450 Output: Urine 325 / 325 125 / 125 Other: # Voids 4 4 1 Date of Last Bowel Movement 10/08/18 10/08/18 10/08/18 # Bowel Movements 3 0 Weight 58.5 kg Assessment and Plan - Assessment (1) Atrial fibrillation Code(s): I48.91 - Unspecified atrial fibrillation Status: Acute (2) Elevated troponin I level Code(s): R74.8 - Abnormal levels of other serum enzymes Status: Acute (3) Hip fracture Code(s): S72.009A - Fracture of unspecified part of neck of unspecified femur, initial encounter for closed fracture Status: Acute - Plan Patient remains in atrial fibrillation, continue sotalol, wean IV diltiazem. Continue anticoagulation with heparin gtt and ASA. No recent angina. Aggressive risk factor modification. 2D echo showed preserved LV function EF 60-65%, mild mitral regurgitation and mild aortic regurgitation. We will continue with current cardiac treatment plan and treat conservatively at this time. Continue to monitor patient on telemetry. We will continue to monitor patient during her hospitalization. She will follow up with Dr. Anna, her primary rocket scientist. The patient was seen and evaluated by Dr. Salazar who participated in care, management and decision making. - Attending Attestation Patient seen and examined. I reviewed and agree with the evaluation and plan as presented. Continue current program with conservative management. Continue IV heparin and baby ASA. Aggressive risk factor modification. F/u w Dr. Anna.
--- NOTE | 2018-10-09 13:49 | P.PNIM ---
Subjective Interval history: Patient is laying down in bed. Currently she does not have any complaints of shortness of breath or chest pain. Physical Exam Vital signs: Vital Signs 10/08/18 13:46 10/08/18 14:00 10/08/18 14:01 Temperature Pulse Rate 121 H 122 H 123 H Respiratory Rate 19 21 20 Blood Pressure 108/70 122/57 L Pulse Oximetry 98 97 97 10/08/18 14:16 10/08/18 14:35 10/08/18 14:46 Temperature Pulse Rate 127 H 129 H 115 H Respiratory Rate 40 H 29 H 25 H Blood Pressure 119/56 L 115/65 99/55 L Pulse Oximetry 98 97 96 10/08/18 15:00 10/08/18 15:06 10/08/18 15:16 Temperature Pulse Rate 114 H 110 H 100 H Respiratory Rate 16 23 20 Blood Pressure 102/62 89/72 L Pulse Oximetry 98 96 98 10/08/18 15:19 10/08/18 15:31 10/08/18 15:46 Temperature Pulse Rate 104 H 103 H 96 H Respiratory Rate 21 22 13 Blood Pressure 103/60 114/60 114/58 L Pulse Oximetry 97 98 97 10/08/18 16:00 10/08/18 16:01 10/08/18 16:16 Temperature Pulse Rate 96 H 98 H Respiratory Rate 30 H 25 H Blood Pressure 101/57 L 115/56 L Pulse Oximetry 94 L 94 L 10/08/18 16:31 10/08/18 16:46 10/08/18 17:00 Temperature Pulse Rate 98 H 100 H 96 H Respiratory Rate 26 H 32 H 18 Blood Pressure 116/64 125/62 Pulse Oximetry 96 97 97 10/08/18 17:01 10/08/18 17:16 10/08/18 17:31 Temperature Pulse Rate 95 H 103 H 102 H Respiratory Rate 33 H 28 H 20 Blood Pressure 132/59 L 130/65 145/75 H Pulse Oximetry 97 97 98 10/08/18 17:46 10/08/18 18:00 10/08/18 18:01 Temperature Pulse Rate 100 H 108 H 107 H Respiratory Rate 22 31 H 26 H Blood Pressure 143/68 H 134/77 Pulse Oximetry 98 97 96 10/08/18 18:16 10/08/18 18:25 10/08/18 18:31 Temperature Pulse Rate 101 H 107 H Respiratory Rate 20 28 H 28 H Blood Pressure 128/60 122/57 L Pulse Oximetry 97 97 10/08/18 18:46 10/08/18 19:00 10/08/18 19:01 Temperature Pulse Rate 103 H 100 H 105 H Respiratory Rate 25 H 21 26 H Blood Pressure 101/61 112/68 Pulse Oximetry 97 97 97 10/08/18 19:16 10/08/18 19:22 10/08/18 19:31 Temperature Pulse Rate 99 H 104 H Respiratory Rate 22 18 Blood Pressure 113/65 96/57 L Pulse Oximetry 96 97 96 10/08/18 19:46 10/08/18 20:00 10/08/18 20:16 Temperature 98.3 F Pulse Rate 102 H 106 H 98 H Respiratory Rate 23 25 H 22 Blood Pressure 103/57 L 99/74 L 104/57 L Pulse Oximetry 96 97 95 10/08/18 20:55 10/08/18 21:00 10/08/18 21:05 Temperature Pulse Rate 109 H 96 H 91 H Respiratory Rate 18 20 14 Blood Pressure 104/57 L 107/51 L 117/55 L Pulse Oximetry 94 L 94 L 95 10/08/18 21:20 10/08/18 21:35 10/08/18 22:00 Temperature Pulse Rate 88 87 98 H Respiratory Rate 16 23 15 Blood Pressure 93/64 L 103/56 L 124/59 L Pulse Oximetry 95 97 90 L 10/08/18 22:20 10/08/18 22:35 10/08/18 22:50 Temperature Pulse Rate 92 H 82 84 Respiratory Rate 15 15 25 H Blood Pressure 108/54 L 104/55 L 104/51 L Pulse Oximetry 95 96 95 10/08/18 23:00 10/08/18 23:20 10/08/18 23:50 Temperature Pulse Rate 91 H 78 77 Respiratory Rate 24 17 14 Blood Pressure 98/53 L 99/51 L 94/60 L Pulse Oximetry 97 96 95 10/09/18 00:00 10/09/18 00:20 10/09/18 00:50 Temperature Pulse Rate 76 83 74 Respiratory Rate 17 21 16 Blood Pressure 94/60 L 96/53 L 95/51 L Pulse Oximetry 94 L 90 L 95 10/09/18 01:00 10/09/18 01:20 10/09/18 01:35 Temperature Pulse Rate 77 80 79 Respiratory Rate 14 19 16 Blood Pressure 99/55 L 93/55 L 89/48 L Pulse Oximetry 95 96 96 10/09/18 01:50 10/09/18 02:00 10/09/18 02:20 Temperature Pulse Rate 81 80 85 Respiratory Rate 18 19 17 Blood Pressure 105/50 L 91/52 L 96/51 L Pulse Oximetry 96 96 96 10/09/18 02:35 10/09/18 02:50 10/09/18 03:00 Temperature Pulse Rate 83 81 98 H Respiratory Rate 27 H 17 17 Blood Pressure 102/56 L 102/58 L 102/58 L Pulse Oximetry 95 97 97 10/09/18 03:15 10/09/18 03:20 10/09/18 03:46 Temperature Pulse Rate 100 H 104 H 94 H Respiratory Rate 19 19 16 Blood Pressure 113/74 131/65 127/74 Pulse Oximetry 98 99 95 10/09/18 04:00 10/09/18 04:20 10/09/18 04:35 Temperature Pulse Rate 97 H 98 H 91 H Respiratory Rate 23 16 15 Blood Pressure 114/64 121/67 101/56 L Pulse Oximetry 97 98 97 10/09/18 04:50 10/09/18 05:00 10/09/18 05:20 Temperature Pulse Rate 85 101 H 89 Respiratory Rate 16 25 H 14 Blood Pressure 97/56 L 111/60 106/55 L Pulse Oximetry 97 87 L 97 10/09/18 05:24 10/09/18 05:35 10/09/18 05:50 Temperature Pulse Rate 109 H 94 H 95 H Respiratory Rate 18 16 Blood Pressure 90/54 L 100/55 L Pulse Oximetry 97 97 10/09/18 05:55 10/09/18 06:00 10/09/18 06:20 Temperature Pulse Rate 107 H 94 H 97 H Respiratory Rate 17 16 16 Blood Pressure 106/53 L 102/56 L 114/53 L Pulse Oximetry 97 96 96 10/09/18 06:35 10/09/18 06:50 10/09/18 07:00 Temperature Pulse Rate 98 H 100 H 94 H Respiratory Rate 28 H 40 H 24 Blood Pressure 102/54 L 111/70 99/53 L Pulse Oximetry 90 L 91 L 96 10/09/18 07:35 10/09/18 07:50 10/09/18 08:00 Temperature 97.8 F Pulse Rate 94 H 97 H 98 H Respiratory Rate 19 36 H 18 Blood Pressure 104/71 105/59 L 106/61 Pulse Oximetry 96 88 L 97 10/09/18 08:20 10/09/18 08:35 10/09/18 09:00 Temperature Pulse Rate 98 H Respiratory Rate 18 Blood Pressure 100/57 L 105/55 L 95/51 L Pulse Oximetry 97 10/09/18 09:20 10/09/18 09:35 10/09/18 09:50 Temperature Pulse Rate Respiratory Rate Blood Pressure 115/57 L 118/58 L 114/48 L Pulse Oximetry 10/09/18 10:00 10/09/18 10:20 10/09/18 10:47 Temperature Pulse Rate 114 H Respiratory Rate 18 Blood Pressure 109/60 111/58 L 102/58 L Pulse Oximetry 96 10/09/18 10:50 10/09/18 11:00 10/09/18 11:20 Temperature Pulse Rate 102 H Respiratory Rate 18 Blood Pressure 101/56 L 91/58 L 100/65 Pulse Oximetry 98 10/09/18 11:35 10/09/18 11:50 Temperature Pulse Rate 107 H Respiratory Rate 23 Blood Pressure 110/71 104/54 L Pulse Oximetry 96 Intake & Output 10/08/18 10/09/18 10/09/18 18:59 06:59 18:59 Intake Total 340 / 340 770 / 770 1450 / 1450 Output Total 325 / 325 125 / 125 Balance 340 / 340 445 / 445 1325 / 1325 Weight 58.5 kg Intake: IV 100 / 100 530 / 530 1000 / 1000 Heparin/D5W 25,000 U/250 mL 25, 250 / 250 000 unit In 250 ml @ 600 UNITS/ HR 6 mls/hr IV.CONT TITRATE PRN Rx#:[id number] Cardizem Inj 125 MG In NS Inj 125 / 125 100 ML @ 10 MG/HR 10 mls/hr IV. CONT TITRATE PRN Rx#:[id number] KCl 20 mEq Premix Inj 20 meq In 100 / 100 100 ml @ 50 mls/hr IV.SIG ONCE ONE Rx#:[id number] Potassium Phosphate Inj 15 MMOL 155 / 155 In NS Inj 150 ML @ 38.75 mls/ hr IV.SIG ONCE ONE Rx#:[id number] NS Inj 1,000 ML @ 50 mls/hr IV. 1000 / 1000 SIG .Q20H KELVIN Rx#:[id number] Oral 240 / 240 240 / 240 450 / 450 Output: Urine 325 / 325 125 / 125 Other: # Voids 4 4 1 Date of Last Bowel Movement 10/08/18 10/08/18 10/08/18 # Bowel Movements 3 0 Narrative: General patient in no acute distress, denies chest pain HEENT extraocular movements are intact, clear oropharyngeal mucosa, no JVD Cardiovascular S1-S2 audible, irregularly irregular rhythm Respiratory clear to auscultation bilaterally Abdomen soft, nontender, nondistended, normal bowel sounds Extremities 2+ distal pulses Neuro patient moves all 4 extremities, sensation is intact bilaterally Results - Labs CBC & Chem 7: 10/09/18 05:33 10/09/18 05:33 Laboratory Results - last 24 hr 10/08/18 10/09/18 10/09/18 20:46 05:33 05:33 WBC 10.7 RBC 3.20 L Hgb 11.7 Hct 33.6 L MCV 104.8 H MCH 36.4 H MCHC 34.8 RDW 14.5 Plt Count 165 MPV 9.3 Neut % (Auto) 85.6 H Lymph % (Auto) 4.3 L [place] % (Auto) 9.9 H Eos % (Auto) 0.1 Baso % (Auto) 0.1 Neut # (Auto) 9.1 H Lymph # (Auto) 0.5 L [place] # (Auto) 1.1 H Eos # (Auto) 0.0 Baso # (Auto) 0.0 WBC Differential . Differential Comment Auto diff final APTT 51.4 H Sodium 136 Potassium 4.1 Chloride 103 Carbon Dioxide 26.2 Anion Gap 7 BUN 20 H Creatinine 0.85 Estimated GFR 64 L Random Glucose 101 Calcium 8.2 L Triglycerides 67 Cholesterol 89 L LDL Cholesterol, Calc 30 HDL Cholesterol 45.2 Cholesterol/HDL Ratio 1.96 10/09/18 05:33 WBC RBC Hgb Hct MCV MCH MCHC RDW Plt Count MPV Neut % (Auto) Lymph % (Auto) [place] % (Auto) Eos % (Auto) Baso % (Auto) Neut # (Auto) Lymph # (Auto) [place] # (Auto) Eos # (Auto) Baso # (Auto) WBC Differential Differential Comment APTT 48.1 H Sodium Potassium Chloride Carbon Dioxide Anion Gap BUN Creatinine Estimated GFR Random Glucose Calcium Triglycerides Cholesterol LDL Cholesterol, Calc HDL Cholesterol Cholesterol/HDL Ratio Assessment and Plan - Assessment (1) Atrial fibrillation Code(s): I48.91 - Unspecified atrial fibrillation Status: Acute (2) Elevated troponin I level Code(s): R74.8 - Abnormal levels of other serum enzymes Status: Acute (3) Urinary tract infection Code(s): N39.0 - Urinary tract infection, site not specified Status: Inactive (4) Hydronephrosis of left kidney Code(s): N13.30 - Unspecified hydronephrosis Status: Inactive (5) Hip fracture Code(s): S72.009A - Fracture of unspecified part of neck of unspecified femur, initial encounter for closed fracture Status: Acute - Plan This patient is an 83-year-old female with a history of hip fracture otherwise no other documented past medical history. The patient presented to our hospital with abdominal pain and hypertensive emergency. She was subsequently found to have an elevated troponin. During this hospitalization the patient was also found to be in atrial fibrillation with rapid ventricular rate and cardiology has been monitoring the patient. 1. Non-ST segment elevation PR 2. Atrial fibrillation with rapid ventricular rate The patient presented with abdominal pain as mentioned above. Troponins were elevated at 2.0 and showed an up trend. I do not see the initial EKG in the chart however as per documentation initial EKG showed a right bundle branch block but no acute findings concerning for ischemia or an infarction. Cardiology was consulted to evaluate the patient. Currently the patient is on aspirin, metoprolol, statin, heparin drip. 2D echocardiogram was done which shows preserved LV function with an ejection fraction of approximately 60%. Diltiazem drip and sotalol have also been started by the cardiology team as the patient went into atrial fibrillation with rapid ventricular rate. We will follow-up with cardiology for the recommendations. Continue to monitor on telemetry, current heart rate in the low 100s. 3. Suspected pyelonephritis Urine culture will be followed up per the [facility] shows gram-negative rods. Continue IV Rocephin. 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 No intervention recommended for now. We will follow-up final results of cultures. 4. Acute kidney injury Resolved after the initiation of IV fluids. 5. Chronic back pain Continue current pain medication regimen DVT prophylaxis, patient is currently on heparin drip. (3) Urinary tract infection Qualifiers: Urinary tract infection type: site unspecified Hematuria presence: with hematuria Qualified Code(s): N39.0 - Urinary tract infection, site not specified; R31.9 - Hematuria, unspecified
--- NOTE | 2018-10-09 20:45 | ECG ---
Date Performed: 10/08/2018 Time Performed: 16:46:08 PTAGE: 83 years EKG: ATRIAL FIBRILLATION RIGHT BUNDLE BRANCH BLOCK ABNORMAL ECG PREVIOUS TRACING : 10/08/2018 12.33 DOCTOR: Nancy Brown Interpretating Date/Time 10/09/2018 20:40:59
--- NOTE | 2018-10-09 20:50 | ECG ---
Date Performed: 10/08/2018 Time Performed: 12:33:27 PTAGE: 83 years EKG: ATRIAL FIBRILLATION WITH RAPID VENTRICULAR RESPONSE INDETERMINATE AXIS RIGHT BUNDLE BRANCH BLOCK ABNORMAL ECG NO PREVIOUS TRACING DOCTOR: Nancy Brown Interpretating Date/Time 10/09/2018 20:43:26
--- NOTE | 2018-10-09 20:52 | ECG ---
Date Performed: 10/08/2018 Time Performed: 10:15:00 PTAGE: 83 years EKG: Atrial fibrillation with uncontrolled ventricular response. Right bundle branch block Infer ior/lateral ST-T changes may be due to myocardial ischemia Abnormal ECG NO PREVIOUS TRACING DOCTOR: Nancy Brown Interpretating Date/Time 10/09/2018 20:44:52
[2018-10-09] MEDS: dilTIAZem Inj 125 MG in Sodium Chlor 0.9% Inj 100 ML IV.CONT PRN (21:35)
[2018-10-10] MEDS: Sod Chloride 0.9% Inj 1,000 ML IV.SIG SCH (05:36)
[2018-10-10 06:16] LABS: Hematocrit 31.2 % (35.0-46.0); Hemoglobin 10.8 gm/dL (11.6-15.3); Mean Corpuscular HGB Conc 34.7 % (32.0-36.0); Mean Corpuscular Hemoglobin 36.5 pg (27.0-34.0); Mean Corpuscular Volume 105.1 fL (80.0-100.0); Mean Platelet Volume 9.3 fL (7.0-11.0); Platelet Count 161 th/mm3 (150-450); Red Blood Count 2.97 mil/mm3 (4.00-5.30); Red Cell Distribution Width 14.2 % (11.6-17.2); White Blood Count 6.7 th/mm3 (4.0-11.0)
[2018-10-10 06:40] LABS: Calcium 8.1 mg/dL (8.5-10.1); Carbon Dioxide 28.1 meq/L (21.0-32.0); Magnesium 2.3 mg/dL (1.5-2.5); Potassium 3.8 meq/L (3.5-5.1)
--- NOTE | 2018-10-10 10:15 | P.PNIM ---
Subjective Interval history: Patient laying down in bed. She is very talkative this morning. No complaints of chest pain or palpitations. No other complaints from the patient this morning. Physical Exam Vital signs: Vital Signs 10/09/18 10:20 10/09/18 10:47 10/09/18 10:50 Temperature Pulse Rate Respiratory Rate Blood Pressure 111/58 L 102/58 L 101/56 L Pulse Oximetry 10/09/18 11:00 10/09/18 11:20 10/09/18 11:35 Temperature Pulse Rate 102 H 107 H Respiratory Rate 18 23 Blood Pressure 91/58 L 100/65 110/71 Pulse Oximetry 98 96 10/09/18 11:50 10/09/18 19:00 10/09/18 20:00 Temperature 98.4 F Pulse Rate 112 H 121 H Respiratory Rate 31 H 24 Blood Pressure 104/54 L 118/67 141/67 H Pulse Oximetry 95 97 10/09/18 20:11 10/09/18 21:00 10/09/18 21:15 Temperature Pulse Rate 105 H 105 H Respiratory Rate 22 23 Blood Pressure 116/60 101/71 Pulse Oximetry 100 98 96 10/09/18 21:30 10/09/18 21:45 10/09/18 22:00 Temperature Pulse Rate 100 H 95 H 89 Respiratory Rate 22 19 19 Blood Pressure 106/71 117/53 L 112/56 L Pulse Oximetry 93 L 97 97 10/09/18 22:15 10/09/18 22:30 10/09/18 22:45 Temperature Pulse Rate 83 89 88 Respiratory Rate 18 18 23 Blood Pressure 103/60 105/63 124/56 L Pulse Oximetry 98 95 94 L 10/09/18 23:00 10/09/18 23:15 10/09/18 23:30 Temperature Pulse Rate 91 H 85 82 Respiratory Rate 21 20 18 Blood Pressure 100/55 L 100/57 L 101/53 L Pulse Oximetry 96 96 96 10/09/18 23:45 10/10/18 00:00 10/10/18 00:15 Temperature Pulse Rate 88 80 84 Respiratory Rate 19 18 19 Blood Pressure 100/50 L 89/53 L 100/51 L Pulse Oximetry 96 97 96 10/10/18 00:30 10/10/18 00:45 10/10/18 01:00 Temperature Pulse Rate 86 92 H 95 H Respiratory Rate 22 19 12 Blood Pressure 111/58 L 108/51 L 116/54 L Pulse Oximetry 95 94 L 97 10/10/18 01:15 10/10/18 01:30 10/10/18 01:45 Temperature Pulse Rate 96 H 93 H 101 H Respiratory Rate 19 20 25 H Blood Pressure 122/56 L 130/60 132/66 Pulse Oximetry 96 97 94 L 10/10/18 02:00 10/10/18 02:15 10/10/18 02:30 Temperature Pulse Rate 100 H 99 H 103 H Respiratory Rate 19 19 24 Blood Pressure 125/60 117/64 128/64 Pulse Oximetry 95 96 93 L 10/10/18 02:45 10/10/18 03:00 10/10/18 03:15 Temperature Pulse Rate 102 H 94 H 94 H Respiratory Rate 28 H 31 H 18 Blood Pressure 126/71 120/57 L 95/54 L Pulse Oximetry 93 L 90 L 96 10/10/18 03:30 10/10/18 03:45 10/10/18 04:00 Temperature Pulse Rate 83 87 85 Respiratory Rate 18 18 19 Blood Pressure 80/44 L 92/53 L 88/53 L Pulse Oximetry 97 98 97 10/10/18 05:32 Temperature Pulse Rate 78 Respiratory Rate Blood Pressure Pulse Oximetry Intake & Output 10/09/18 10/10/18 10/10/18 18:59 06:59 18:59 Intake Total 1890 / 1890 1605 / 1605 Output Total 275 / 275 700 / 700 Balance 1615 / 1615 905 / 905 Weight 59.7 kg Intake: IV 1000 / 1000 1125 / 1125 Cardizem Inj 125 MG In NS Inj 125 / 125 100 ML @ 10 MG/HR 10 mls/hr IV. CONT TITRATE PRN Rx#:[id number] NS Inj 1,000 ML @ 50 mls/hr IV. 1000 / 1000 1000 / 1000 SIG .Q20H KELVIN Rx#:[id number] Oral 890 / 890 480 / 480 Output: Urine 275 / 275 700 / 700 Other: # Voids 2 4 Date of Last Bowel Movement 10/09/18 10/10/18 10/09/18 # Bowel Movements 2 # Incontinent Bowel Movements 1 Narrative: General patient in no acute distress, denies chest pain HEENT extraocular movements are intact, clear oropharyngeal mucosa, no JVD Cardiovascular S1-S2 audible, irregularly irregular rhythm Respiratory clear to auscultation bilaterally Abdomen soft, nontender, nondistended, normal bowel sounds Extremities 2+ distal pulses Neuro patient moves all 4 extremities, sensation is intact bilaterally Results - Labs CBC & Chem 7: 10/10/18 05:10 10/10/18 05:10 Laboratory Results - last 24 hr 10/10/18 10/10/18 10/10/18 05:10 05:10 05:10 WBC 6.7 RBC 2.97 L Hgb 10.8 L Hct 31.2 L MCV 105.1 H MCH 36.5 H MCHC 34.7 RDW 14.2 Plt Count 161 MPV 9.3 APTT 44.1 H Sodium 141 Potassium 3.8 Chloride 107 Carbon Dioxide 28.1 Anion Gap 6 BUN 16 Creatinine 0.83 Estimated GFR 65 L Random Glucose 97 Calcium 8.1 L Magnesium 2.3 Assessment and Plan - Assessment (1) Atrial fibrillation Code(s): I48.91 - Unspecified atrial fibrillation Status: Acute (2) Elevated troponin I level Code(s): R74.8 - Abnormal levels of other serum enzymes Status: Acute (3) Hip fracture Code(s): S72.009A - Fracture of unspecified part of neck of unspecified femur, initial encounter for closed fracture Status: Acute - Plan This patient is an 83-year-old female with a history of hip fracture otherwise no other documented past medical history. The patient presented to our hospital with abdominal pain and hypertensive emergency. She was subsequently found to have an elevated troponin. During this hospitalization the patient was also found to be in atrial fibrillation with rapid ventricular rate and cardiology has been monitoring the patient. 10/10/18 Patient's heart rate currently under control on cardizem Gtt, metoprolol. No chest pain. Cardiology following the patient. Will discuss case with cardiology in regards to transitioning the patient to PO cardizem and transferring the patient out of the ICU. She is also currently on Heparin gtt which will be continued for now. I will discuss this with Cardiology to see if they plan to have the patient undergo a cardiac cath, if not I would like to switch the patient to an oral anticoagulant. Titrate off of supplemental oxygen, patient's oxygen sats are 98% on 2 L. Case and plan discussed with the patient's nurse at bedside. A call will be placed to cardiology in order to discuss the plan. Continue Asa, statin, BB, Cardizem, heparin gtt. Stop IV rocephin after todays dose. 1. Non-ST segment elevation SC 2. Atrial fibrillation with rapid ventricular rate The patient presented with abdominal pain as mentioned above. Troponins were elevated at 2.0 and showed an up trend. I do not see the initial EKG in the chart however as per documentation initial EKG showed a right bundle branch block but no acute findings concerning for ischemia or an infarction. Cardiology was consulted to evaluate the patient. Currently the patient is on aspirin, metoprolol, statin, heparin drip. 2D echocardiogram was done which shows preserved LV function with an ejection fraction of approximately 60%. Diltiazem drip and sotalol have also been started by the cardiology team as the patient went into atrial fibrillation with rapid ventricular rate. We will follow-up with cardiology for the recommendations. Continue to monitor on telemetry, current heart rate in the low 100s. Monitor electrolytes and replace as needed. 3. UTI I do not believe the patient has pyelonephritis. Urine culture shows e coli. Continue IV Rocephin for today, will discontinue tomorrow. 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 No intervention recommended for now. We will follow-up final results of cultures. 4. Acute kidney injury Resolved after the initiation of IV fluids. 5. Chronic back pain Continue current pain medication regimen DVT prophylaxis, patient is currently on heparin drip.
--- NOTE | 2018-10-10 10:39 | P.PNCA ---
Subjective Interval history: Denies chest pain or shortness of breath. Resting comfortably in bed without distress Medications and Allergies Allergies Allergy/AdvReac Type Severity Reaction Status Date / Time ciprofloxacin [From Cipro] Allergy Rash Verified 10/07/18 07:55 Home Medications Medication Instructions Recorded Confirmed Type hydrocodone-acetaminophen 1 tab PO Q4-6H PRN 10/07/18 10/09/18 History tetrahydrozoline-zinc [Eye 10/07/18 History Drops(tetrahydroz-zn sulf)] Active Medications: Active Medications Acetaminophen (Tylenol) 650 mg PO Q6HR PRN PRN Reason: PAIN SCALE 1 TO 2 Hydrocodone Bitart/Acetaminophen ([place] 10/325) 1 tab PO Q6H PRN PRN Reason: PAIN SCALE 6 TO 10 Last Admin: 10/08/18 18:25 Dose: 1 tab Aspirin (Aspirin Chew) 81 mg PO DAILY [facility] Last Admin: 10/10/18 08:09 Dose: 81 mg Atorvastatin Calcium (Lipitor) 40 mg PO HS [facility] Last Admin: 10/09/18 20:57 Dose: 40 mg Cyclobenzaprine HCl (Flexeril) 5 mg PO Q8H PRN PRN Reason: CRAMPS Heparin Sodium/Dextrose (Heparin/D5w 25,000 U/250 Ml) 25,000 unit in 250 mls @ 6 mls/hr IV.CONT TITRATE PRN; Protocol PRN Reason: Per Protocol Last Titration: 10/09/18 20:59 Dose: 700 units/hr, 7 mls/hr Diltiazem HCl 125 mg/ Sodium (Chloride) 125 mls @ 10 mls/hr IV.CONT TITRATE PRN ; Protocol PRN Reason: Per Protocol Last Titration: 10/10/18 01:25 Dose: 5 mg/hr, 5 mls/hr Sodium Chloride (Ns Inj) 1,000 mls @ 50 mls/hr IV.SIG .Q20H [facility] Last Admin: 10/10/18 05:36 Dose: 50 mls/hr Naloxone HCl (Narcan Inj) 0.4 mg IV.PUSH UNSCH PRN PRN Reason: SEE LABEL COMMENTS Ondansetron HCl (Zofran Odt) 4 mg PO Q6H PRN PRN Reason: nausea Last Admin: 10/08/18 15:59 Dose: 4 mg Pantoprazole Sodium (Protonix) 40 mg PO DAILY [facility] Last Admin: 10/10/18 08:09 Dose: 40 mg Sodium Chloride (Ns Flush) 2 ml IV.FLUSH BID [facility] Last Admin: 10/10/18 08:10 Dose: 2 ml Sodium Chloride (Ns Flush) 2 ml IV.FLUSH UNSCH PRN PRN Reason: FLUSH AFTER USING IV ACCESS Sotalol HCl (Betapace) 80 mg PO BID [facility] Last Admin: 10/10/18 08:10 Dose: 80 mg Tramadol HCl (Ultram) 50 mg PO Q4H PRN PRN Reason: PAIN SCALE 3 TO 5 Last Admin: 10/08/18 15:55 Dose: 50 mg Physical Exam Vital signs: Vital Signs 10/09/18 10:47 10/09/18 10:50 10/09/18 11:00 Temperature Pulse Rate 102 H Respiratory Rate 18 Blood Pressure 102/58 L 101/56 L 91/58 L Pulse Oximetry 98 10/09/18 11:20 10/09/18 11:35 10/09/18 11:50 Temperature Pulse Rate 107 H Respiratory Rate 23 Blood Pressure 100/65 110/71 104/54 L Pulse Oximetry 96 10/09/18 19:00 10/09/18 20:00 10/09/18 20:11 Temperature 98.4 F Pulse Rate 112 H 121 H Respiratory Rate 31 H 24 Blood Pressure 118/67 141/67 H Pulse Oximetry 95 97 100 10/09/18 21:00 10/09/18 21:15 10/09/18 21:30 Temperature Pulse Rate 105 H 105 H 100 H Respiratory Rate 22 23 22 Blood Pressure 116/60 101/71 106/71 Pulse Oximetry 98 96 93 L 10/09/18 21:45 10/09/18 22:00 10/09/18 22:15 Temperature Pulse Rate 95 H 89 83 Respiratory Rate 19 19 18 Blood Pressure 117/53 L 112/56 L 103/60 Pulse Oximetry 97 97 98 10/09/18 22:30 10/09/18 22:45 10/09/18 23:00 Temperature Pulse Rate 89 88 91 H Respiratory Rate 18 23 21 Blood Pressure 105/63 124/56 L 100/55 L Pulse Oximetry 95 94 L 96 10/09/18 23:15 10/09/18 23:30 10/09/18 23:45 Temperature Pulse Rate 85 82 88 Respiratory Rate 20 18 19 Blood Pressure 100/57 L 101/53 L 100/50 L Pulse Oximetry 96 96 96 10/10/18 00:00 10/10/18 00:15 10/10/18 00:30 Temperature Pulse Rate 80 84 86 Respiratory Rate 18 19 22 Blood Pressure 89/53 L 100/51 L 111/58 L Pulse Oximetry 97 96 95 10/10/18 00:45 10/10/18 01:00 10/10/18 01:15 Temperature Pulse Rate 92 H 95 H 96 H Respiratory Rate 19 12 19 Blood Pressure 108/51 L 116/54 L 122/56 L Pulse Oximetry 94 L 97 96 10/10/18 01:30 10/10/18 01:45 10/10/18 02:00 Temperature Pulse Rate 93 H 101 H 100 H Respiratory Rate 20 25 H 19 Blood Pressure 130/60 132/66 125/60 Pulse Oximetry 97 94 L 95 10/10/18 02:15 10/10/18 02:30 10/10/18 02:45 Temperature Pulse Rate 99 H 103 H 102 H Respiratory Rate 19 24 28 H Blood Pressure 117/64 128/64 126/71 Pulse Oximetry 96 93 L 93 L 10/10/18 03:00 10/10/18 03:15 10/10/18 03:30 Temperature Pulse Rate 94 H 94 H 83 Respiratory Rate 31 H 18 18 Blood Pressure 120/57 L 95/54 L 80/44 L Pulse Oximetry 90 L 96 97 10/10/18 03:45 10/10/18 04:00 10/10/18 05:32 Temperature Pulse Rate 87 85 78 Respiratory Rate 18 19 Blood Pressure 92/53 L 88/53 L Pulse Oximetry 98 97 Intake & Output 10/09/18 10/10/18 10/10/18 18:59 06:59 18:59 Intake Total 1890 / 1890 1605 / 1605 Output Total 275 / 275 700 / 700 Balance 1615 / 1615 905 / 905 Weight 59.7 kg Intake: IV 1000 / 1000 1125 / 1125 Cardizem Inj 125 MG In NS Inj 125 / 125 100 ML @ 10 MG/HR 10 mls/hr IV. CONT TITRATE PRN Rx#:[id number] NS Inj 1,000 ML @ 50 mls/hr IV. 1000 / 1000 1000 / 1000 SIG .Q20H [facility] Rx#:[id number] Oral 890 / 890 480 / 480 Output: Urine 275 / 275 700 / 700 Other: # Voids 2 4 Date of Last Bowel Movement 10/09/18 10/10/18 10/09/18 # Bowel Movements 2 # Incontinent Bowel Movements 1 - Constitutional no acute distress - Routine HEENT Exam Head: Present: normocephalic, atraumatic Eye: Present: EOMI ENT: Present: mucous membranes moist - Routine Neck Exam Present: supple, full ROM. Absent: JVD - Routine Respiratory Exam Present: CTA bilaterally - Routine Cardiovascular Exam Present: S1, S2, irregular rhythm - Routine Abdominal Exam Present: soft, normoactive bowel sounds. Absent: tenderness - Routine Extremities Exam Present: pulses intact, normal capillary refill. Absent: cyanosis, clubbing, edema - Routine Skin Exam Present: dry, warm. Absent: cyanosis - Routine Neurological Exam Present: alert, oriented X3 Results 10/10/18 05:10 10/10/18 05:10 Cardiac Enzymes 10/08/18 Range/Units 11:45 AST 34 (15-37) U/L Troponin I 2.84 H* D (0.02-0.05) ng/mL Coagulation 10/08/18 10/09/18 10/10/18 Range/Units 20:46 05:33 05:10 APTT 51.4 H 48.1 H 44.1 H (23.4-31.7) sec Lipids 10/09/18 Range/Units 05:33 Triglycerides 67 (42-150) mg/dL Cholesterol 89 L (120-200) mg/dL HDL Cholesterol 45.2 (40.0-60.0) mg/dL Cholesterol/HDL Ratio 1.96 Ratio CBC 10/09/18 10/10/18 Range/Units 05:33 05:10 WBC 10.7 6.7 (4.0-11.0) th/mm3 RBC 3.20 L 2.97 L (4.00-5.30) mil/mm3 Hgb 11.7 10.8 L (11.6-15.3) gm/dL Hct 33.6 L 31.2 L (35.0-46.0) % Plt Count 165 161 (150-450) th/mm3 Neut # (Auto) 9.1 H (1.8-7.7) th/mm3 Lymph # (Auto) 0.5 L (1.0-4.8) th/mm3 [place] # (Auto) 1.1 H (0.0-0.9) th/mm3 Eos # (Auto) 0.0 (0.0-0.4) th/mm3 Baso # (Auto) 0.0 (0.0-0.2) th/mm3 Comprehensive Metabolic Panel 10/08/18 10/09/18 10/10/18 Range/Units 11:45 05:33 05:10 Sodium 135 L 136 141 (136-145) meq/L Potassium 3.9 4.1 3.8 (3.5-5.1) meq/L Chloride 100 103 107 (98-107) meq/L Carbon Dioxide 27.8 26.2 28.1 (21.0-32.0) meq/L BUN 19 H 20 H 16 (7-18) mg/dL Creatinine 0.91 0.85 0.83 (0.50-1.00) mg/dL Calcium 8.2 L 8.2 L 8.1 L (8.5-10.1) mg/dL AST 34 (15-37) U/L ALT 26 (10-53) U/L Alkaline Phosphatase 63 (45-117) U/L Total Protein 6.5 D (6.4-8.2) g/dL Albumin 3.0 L D (3.4-5.0) g/dL Intake and Output 10/09/18 10/10/18 10/10/18 22:59 06:59 14:59 Intake Total 565 / 565 1480 / 1480 Output Total 150 / 150 700 / 700 Balance 415 / 415 780 / 780 Intake: IV 125 / 125 1000 / 1000 Cardizem Inj 125 MG In NS Inj 125 / 125 100 ML @ 10 MG/HR 10 mls/hr IV. CONT TITRATE PRN Rx#:[id number] NS Inj 1,000 ML @ 50 mls/hr IV. 1000 / 1000 SIG .Q20H [facility] Rx#:[id number] Oral 440 / 440 480 / 480 Output: Urine 150 / 150 700 / 700 Other: # Voids 2 4 Date of Last Bowel Movement 10/09/18 10/10/18 10/09/18 # Bowel Movements 2 # Incontinent Bowel Movements 1 Weight 59.7 kg Assessment and Plan - Plan Patient remains in atrial fibrillation with rate controlled, continue sotalol, discontinue IV diltiazem. Continue anticoagulation with Lovenox subcu. DC heparin. Continue low-dose ASA. Denies angina. Continue Lipitor. 2D echo showed preserved LV function EF 60-65%, mild mitral regurgitation and mild aortic regurgitation. We will continue with current cardiac treatment plan and treat conservatively [ also per her wishes] at this time. Continue to monitor patient on telemetry. We will continue to monitor patient during her hospitalization. She will follow up with Dr. Anna, her primary blender conveyor operator who will be seeing her Friday morning. The patient was seen and evaluated by Dr. Manzanares who participated in care, management and decision making. Discussed Condition With: Patient and Daughter Neelam by phone
--- NOTE | 2018-10-10 17:45 | ECG ---
Date Performed: 10/10/2018 Time Performed: 11:51:40 PTAGE: 83 years EKG: Atrial fibrillation. Right axis deviation Right bundle branch block Lateral infarct - age u ndetermined Inferior T wave changes are nonspecific Abnormal ECG PREVIOUS TRACING : 10/09/2018 17.42 Since the previous tracing, no significant change noted DOCTOR: Jf Acosta Interpretating Date/Time 10/10/2018 17:43:43
[2018-10-10] MEDS: Enoxaparin Inj 40 MG/0.4 ML Syringe SQ SCH (17:46)
--- NOTE | 2018-10-10 18:30 | ECG ---
Date Performed: 10/09/2018 Time Performed: 17:42:01 PTAGE: 83 years EKG: ATRIAL FIBRILLATION WITH RAPID VENTRICULAR RESPONSE RIGHT BUNDLE BRANCH BLOCK ABNORMAL ECG PREVIOUS TRACING : 10/08/2018 16.46 Since the previous tracing, no significant change noted DOCTOR: Jf Acosta Interpretating Date/Time 10/10/2018 18:27:54
[2018-10-10] MEDS ORDERED: ALPRAZolam 0.25 MG Tablet PO SCH (23:15)
[2018-10-11 06:26] LABS: Calcium 8.2 mg/dL (8.5-10.1); Carbon Dioxide 27.6 meq/L (21.0-32.0); Magnesium 2.2 mg/dL (1.5-2.5); Potassium 3.6 meq/L (3.5-5.1)
[2018-10-11 06:37] LABS: Thyroid Stimulating Hormone 1.45 uIU/mL (0.358-3.740)
[2018-10-11] MEDS: Enoxaparin Inj 40 MG/0.4 ML Syringe SQ SCH ×2 (06:43→17:38)
--- NOTE | 2018-10-11 12:04 | P.PNCA ---
Subjective Interval history: Denies chest pain or shortness of breath. Her ventricular response rate has been variable but more on the high side. Medications and Allergies Active Medications: Active Medications Acetaminophen (Tylenol) 650 mg PO Q6HR PRN PRN Reason: PAIN SCALE 1 TO 2 Hydrocodone Bitart/Acetaminophen ([place] 10/325) 1 tab PO Q6H PRN PRN Reason: PAIN SCALE 6 TO 10 Last Admin: 10/08/18 18:25 Dose: 1 tab Aspirin (Aspirin Chew) 81 mg PO DAILY [facility] Last Admin: 10/11/18 08:21 Dose: 81 mg Atorvastatin Calcium (Lipitor) 40 mg PO HS [facility] Last Admin: 10/10/18 21:14 Dose: 40 mg Cyclobenzaprine HCl (Flexeril) 5 mg PO Q8H PRN PRN Reason: CRAMPS Enoxaparin Sodium (Lovenox Inj) 40 mg SQ Q12H [facility] Last Admin: 10/11/18 06:43 Dose: 40 mg Naloxone HCl (Narcan Inj) 0.4 mg IV.PUSH UNSCH PRN PRN Reason: SEE LABEL COMMENTS Ondansetron HCl (Zofran Odt) 4 mg PO Q6H PRN PRN Reason: nausea Last Admin: 10/08/18 15:59 Dose: 4 mg Pantoprazole Sodium (Protonix) 40 mg PO DAILY [facility] Last Admin: 10/11/18 08:21 Dose: 40 mg Sodium Chloride (Ns Flush) 2 ml IV.FLUSH BID [facility] Last Admin: 10/11/18 08:21 Dose: 2 ml Sodium Chloride (Ns Flush) 2 ml IV.FLUSH UNSCH PRN PRN Reason: FLUSH AFTER USING IV ACCESS Sotalol HCl (Betapace) 120 mg PO BID [facility] Last Admin: 10/11/18 08:21 Dose: 120 mg Tramadol HCl (Ultram) 50 mg PO Q4H PRN PRN Reason: PAIN SCALE 3 TO 5 Last Admin: 10/08/18 15:55 Dose: 50 mg Allergies Allergy/AdvReac Type Severity Reaction Status Date / Time ciprofloxacin [From Cipro] Allergy Rash Verified 10/07/18 07:55 Home Medications Medication Instructions Recorded Confirmed Type hydrocodone-acetaminophen 1 tab PO Q4-6H PRN 10/07/18 10/09/18 History tetrahydrozoline-zinc [Eye 10/07/18 History Drops(tetrahydroz-zn sulf)] Physical Exam Vital signs: Vital Signs 10/10/18 12:00 10/10/18 12:30 10/10/18 12:54 Temperature 98.7 F Pulse Rate 81 85 99 H Respiratory Rate 27 H 40 H 29 H Blood Pressure 93/72 L 147/68 H 100/50 L Pulse Oximetry 90 L 68 L 10/10/18 13:00 10/10/18 14:00 10/10/18 15:00 Temperature Pulse Rate 98 H 101 H 107 H Respiratory Rate 31 H 34 H 23 Blood Pressure 103/58 L 99/66 L 113/54 L Pulse Oximetry 84 L 74 L 88 L 10/10/18 16:00 10/10/18 17:00 10/10/18 17:32 Temperature 98.6 F Pulse Rate 114 H 112 H 119 H Respiratory Rate 25 H 26 H 30 H Blood Pressure 122/58 L 131/85 Pulse Oximetry 92 L 90 L 90 L 10/10/18 18:00 10/10/18 19:00 10/10/18 20:22 Temperature 98.6 F Pulse Rate 124 H 121 H 127 H Respiratory Rate 23 33 H 20 Blood Pressure 150/68 H 116/62 Pulse Oximetry 94 L 93 L 10/10/18 20:23 10/10/18 21:00 10/10/18 22:00 Temperature Pulse Rate 120 H 116 H 125 H Respiratory Rate 15 24 23 Blood Pressure 111/66 134/72 135/60 Pulse Oximetry 86 L 99 10/11/18 00:00 10/11/18 00:26 10/11/18 01:00 Temperature Pulse Rate 117 H 123 H 120 H Respiratory Rate 27 H 21 20 Blood Pressure 120/59 L Pulse Oximetry 92 L 97 96 10/11/18 01:51 10/11/18 02:12 10/11/18 02:13 Temperature Pulse Rate 123 H 124 H Respiratory Rate 32 H 26 H Blood Pressure 152/101 H 134/64 Pulse Oximetry 89 L 10/11/18 02:30 10/11/18 02:48 10/11/18 03:00 Temperature Pulse Rate 118 H 116 H 118 H Respiratory Rate 21 21 17 Blood Pressure 105/55 L 102/70 Pulse Oximetry 92 L 90 L 91 L 10/11/18 03:18 10/11/18 03:48 10/11/18 04:00 Temperature Pulse Rate 123 H 123 H 123 H Respiratory Rate 18 14 19 Blood Pressure 105/57 L 93/70 L Pulse Oximetry 91 L 94 L 93 L 10/11/18 04:18 10/11/18 04:48 10/11/18 05:05 Temperature Pulse Rate 114 H 125 H 122 H Respiratory Rate 20 19 Blood Pressure 111/63 128/75 Pulse Oximetry 92 L 91 L 87 L 10/11/18 05:18 10/11/18 05:48 10/11/18 06:00 Temperature Pulse Rate 124 H 115 H 122 H Respiratory Rate 23 20 20 Blood Pressure 126/77 123/56 L Pulse Oximetry 98 97 97 10/11/18 06:18 10/11/18 06:48 10/11/18 07:00 Temperature Pulse Rate 110 H 120 H 109 H Respiratory Rate 21 23 23 Blood Pressure 107/55 L 115/56 L Pulse Oximetry 94 L 94 L 94 L 10/11/18 07:18 10/11/18 07:48 10/11/18 08:00 Temperature 97.5 F L Pulse Rate 112 H 114 H 116 H Respiratory Rate 22 23 22 Blood Pressure 118/68 116/67 Pulse Oximetry 96 96 96 10/11/18 08:18 10/11/18 08:48 10/11/18 09:06 Temperature Pulse Rate 112 H 109 H 109 H Respiratory Rate 20 22 Blood Pressure 127/58 L 123/72 Pulse Oximetry 96 98 10/11/18 10:00 Temperature Pulse Rate 103 H Respiratory Rate Blood Pressure Pulse Oximetry Intake & Output 10/10/18 10/11/18 10/11/18 18:59 06:59 18:59 Intake Total 660 / 660 950 / 950 Output Total 800 / 800 5 / 5 Balance -140 / -140 945 / 945 Weight 59.2 kg Intake: IV 400 / 400 NS Inj 1,000 ML @ 50 mls/hr IV. 400 / 400 SIG .Q20H [facility] Rx#:[id number] Oral 660 / 660 550 / 550 Output: Urine 800 / 800 Stool 5 / 5 Other: # Voids 6 Date of Last Bowel Movement 10/10/18 10/11/18 10/11/18 # Bowel Movements 1 - Constitutional no acute distress - Routine HEENT Exam Head: Present: normocephalic, atraumatic - Routine Neck Exam Present: supple. Absent: JVD, thyromegaly - Routine Respiratory Exam Comments: Decreased breath sounds more on the left base with bilateral crepitations one third the way up. - Routine Cardiovascular Exam Comments: S1 and S2 are variable in intensity and irregular. Faint S4 gallop. - Routine Abdominal Exam Present: soft, normoactive bowel sounds - Routine Extremities Exam Absent: cyanosis, clubbing, edema - Routine Skin Exam Present: intact - Routine Neurological Exam Present: alert, oriented X3 Results 10/10/18 05:10 10/11/18 05:15 Coagulation 10/10/18 Range/Units 05:10 APTT 44.1 H (23.4-31.7) sec CBC 10/10/18 Range/Units 05:10 WBC 6.7 (4.0-11.0) th/mm3 RBC 2.97 L (4.00-5.30) mil/mm3 Hgb 10.8 L (11.6-15.3) gm/dL Hct 31.2 L (35.0-46.0) % Plt Count 161 (150-450) th/mm3 Comprehensive Metabolic Panel 10/10/18 10/11/18 Range/Units 05:10 05:15 Sodium 141 140 (136-145) meq/L Potassium 3.8 3.6 (3.5-5.1) meq/L Chloride 107 106 (98-107) meq/L Carbon Dioxide 28.1 27.6 (21.0-32.0) meq/L BUN 16 13 (7-18) mg/dL Creatinine 0.83 0.91 (0.50-1.00) mg/dL Calcium 8.1 L 8.2 L (8.5-10.1) mg/dL Intake and Output 10/10/18 10/11/18 10/11/18 22:59 06:59 14:59 Intake Total 1060 / 1060 550 / 550 Output Total 800 / 800 5 / 5 Balance 260 / 260 545 / 545 Intake: IV 400 / 400 NS Inj 1,000 ML @ 50 mls/hr IV. 400 / 400 SIG .Q20H [facility] Rx#:[id number] Oral 660 / 660 550 / 550 Output: Urine 800 / 800 Stool 5 / 5 Other: # Voids 6 Date of Last Bowel Movement 10/10/18 10/11/18 10/11/18 # Bowel Movements 1 Weight 59.2 kg Assessment and Plan - Plan Patient remains in atrial fibrillation with intermittent high ventricular response rate, continue higher dose of sotalol, EKG today noted with acceptable QTc interval. Add low-dose p.o. Cardizem for better heart rate control. If her A. fib remains difficult to control then consideration for a transesophageal echocardiogram/electrical cardioversion should be entertained. Replace electrolytes and follow them. Continue anticoagulation with Lovenox subcu. DC heparin. Continue low-dose ASA. Denies angina. Continue Lipitor. 2D echo showed preserved LV function EF 60-65%, mild mitral regurgitation and mild aortic regurgitation. We will continue with current cardiac treatment plan and treat conservatively [ also per her wishes] at this time. Continue to monitor patient on telemetry. We will continue to monitor patient during her hospitalization. She will follow up with Dr. Anna, her primary architecture faculty member who will be seeing her Friday morning.
[2018-10-11] MEDS: dilTIAZem 30 MG Tablet PO SCH ×2 (12:27→20:23)
[2018-10-11] MEDS ORDERED: Sodium Phosphate Inj 30 MMOL in Sodium Chlor 0.9% Inj 250 ML IV.SIG ONE (13:00)
[2018-10-11] MEDS ORDERED: Potassium Phosphate Inj 30 MMOL in Sodium Chlor 0.9% Inj 250 ML IV.SIG ONE (13:00)
--- NOTE | 2018-10-11 15:07 | P.PNIM ---
Subjective Interval history: Patient says she feels tired, she didn't get good rest last night. Denies chest pain, no shortness of breath. Physical Exam Vital signs: Vital Signs 10/10/18 15:00 10/10/18 16:00 10/10/18 17:00 Temperature 98.6 F Pulse Rate 107 H 114 H 112 H Respiratory Rate 23 25 H 26 H Blood Pressure 113/54 L 122/58 L Pulse Oximetry 88 L 92 L 90 L 10/10/18 17:32 10/10/18 18:00 10/10/18 19:00 Temperature Pulse Rate 119 H 124 H 121 H Respiratory Rate 30 H 23 33 H Blood Pressure 131/85 150/68 H 116/62 Pulse Oximetry 90 L 94 L 93 L 10/10/18 20:22 10/10/18 20:23 10/10/18 21:00 Temperature 98.6 F Pulse Rate 127 H 120 H 116 H Respiratory Rate 20 15 24 Blood Pressure 111/66 134/72 Pulse Oximetry 86 L 10/10/18 22:00 10/11/18 00:00 10/11/18 00:26 Temperature Pulse Rate 125 H 117 H 123 H Respiratory Rate 23 27 H 21 Blood Pressure 135/60 120/59 L Pulse Oximetry 99 92 L 97 10/11/18 01:00 10/11/18 01:51 10/11/18 02:12 Temperature Pulse Rate 120 H 123 H Respiratory Rate 20 32 H Blood Pressure 152/101 H Pulse Oximetry 96 10/11/18 02:13 10/11/18 02:30 10/11/18 02:48 Temperature Pulse Rate 124 H 118 H 116 H Respiratory Rate 26 H 21 21 Blood Pressure 134/64 105/55 L 102/70 Pulse Oximetry 89 L 92 L 90 L 10/11/18 03:00 10/11/18 03:18 10/11/18 03:48 Temperature Pulse Rate 118 H 123 H 123 H Respiratory Rate 17 18 14 Blood Pressure 105/57 L 93/70 L Pulse Oximetry 91 L 91 L 94 L 10/11/18 04:00 10/11/18 04:18 10/11/18 04:48 Temperature Pulse Rate 123 H 114 H 125 H Respiratory Rate 19 20 19 Blood Pressure 111/63 128/75 Pulse Oximetry 93 L 92 L 91 L 10/11/18 05:05 10/11/18 05:18 12/30/18 05:48 Temperature Pulse Rate 122 H 124 H 115 H Respiratory Rate 23 20 Blood Pressure 126/77 123/56 L Pulse Oximetry 87 L 98 97 10/11/18 06:00 10/11/18 06:18 10/11/18 06:48 Temperature Pulse Rate 122 H 110 H 120 H Respiratory Rate 20 21 23 Blood Pressure 107/55 L 115/56 L Pulse Oximetry 97 94 L 94 L 10/11/18 07:00 10/11/18 07:18 10/11/18 07:48 Temperature Pulse Rate 109 H 112 H 114 H Respiratory Rate 23 22 23 Blood Pressure 118/68 116/67 Pulse Oximetry 94 L 96 96 10/11/18 08:00 10/11/18 08:18 10/11/18 08:48 Temperature 97.5 F L Pulse Rate 116 H 112 H 109 H Respiratory Rate 22 20 22 Blood Pressure 127/58 L 123/72 Pulse Oximetry 96 96 98 10/11/18 09:06 10/11/18 09:28 10/11/18 09:48 Temperature Pulse Rate 109 H 115 H 113 H Respiratory Rate 24 25 H Blood Pressure 126/77 135/79 Pulse Oximetry 85 L 97 10/11/18 10:00 10/11/18 10:18 10/11/18 10:48 Temperature Pulse Rate 123 H 121 H 112 H Respiratory Rate 28 H 28 H 30 H Blood Pressure 123/70 114/80 Pulse Oximetry 99 95 81 L 10/11/18 11:00 10/11/18 11:32 10/11/18 11:50 Temperature Pulse Rate 104 H 120 H 120 H Respiratory Rate 26 H 27 H Blood Pressure 118/72 124/68 Pulse Oximetry 94 L 94 L 10/11/18 12:00 10/11/18 14:00 10/11/18 14:37 Temperature 98.5 F Pulse Rate 116 H 100 H Respiratory Rate 27 H 26 H Blood Pressure Pulse Oximetry 94 L Intake & Output 10/10/18 10/11/18 10/11/18 18:59 06:59 18:59 Intake Total 660 / 660 950 / 950 Output Total 800 / 800 5 / 5 Balance -140 / -140 945 / 945 Weight 59.2 kg Intake: IV 400 / 400 NS Inj 1,000 ML @ 50 mls/hr IV. 400 / 400 SIG .Q20H KELVIN Rx#:[id number] Oral 660 / 660 550 / 550 Output: Urine 800 / 800 Stool 5 / 5 Other: # Voids 6 Date of Last Bowel Movement 10/10/18 10/11/18 10/11/18 # Bowel Movements 1 Narrative: General patient in no acute distress, denies chest pain, no palpitations HEENT extraocular movements are intact, clear oropharyngeal mucosa, no JVD Cardiovascular S1-S2 audible, irregularly irregular rhythm Respiratory clear to auscultation bilaterally Abdomen soft, nontender, nondistended, normal bowel sounds Extremities 2+ distal pulses Neuro patient moves all 4 extremities, sensation is intact bilaterally Results - Labs CBC & Chem 7: 10/10/18 05:10 10/11/18 05:15 Laboratory Results - last 24 hr 10/11/18 10/11/18 05:15 05:15 Sodium 140 Potassium 3.6 Chloride 106 Carbon Dioxide 27.6 Anion Gap 6 BUN 13 Creatinine 0.91 Estimated GFR 59 L Random Glucose 87 Calcium 8.2 L Phosphorus 1.8 L Magnesium 2.2 TSH 1.450 Assessment and Plan - Assessment (1) Atrial fibrillation Code(s): I48.91 - Unspecified atrial fibrillation Status: Acute (2) Elevated troponin I level Code(s): R74.8 - Abnormal levels of other serum enzymes Status: Acute (3) Hip fracture Code(s): S72.009A - Fracture of unspecified part of neck of unspecified femur, initial encounter for closed fracture Status: Acute - Plan This patient is an 83-year-old female with a history of hip fracture otherwise no other documented past medical history. The patient presented to our hospital with abdominal pain and hypertensive emergency. She was subsequently found to have an elevated troponin. During this hospitalization the patient was also found to be in atrial fibrillation with rapid ventricular rate and cardiology has been monitoring the patient. 10/11/18 1. Non-ST segment elevation MA 2. Atrial fibrillation with rapid ventricular rate Patient back in a fib with RVR. Cardiology evaluated the patient and increased the dose of Sotalol and started low dose cardizem. No chest pain or palpitations from the patient. Current HR in the 130s. Patient may possibly need a RADHA and electrical cardioversion as per the cardiology note from today. Patient given po K today. Mg 2.2 Keep K above 4 and Mg above 2. Continue asa, statin, bb, cardizem, sotalol. I discussed the plan with the awake overnight monitor today who does not want to restart cardizem gtt due to episodes of bradycardia into the 50s which are seen on telemetry. Patient has a fib with an elevated chads score and was on heparin gtt, this has been changed to lovenox bid by cardiology. Titrate off of supplemental oxygen, patient's oxygen sats are 98% on 2 L. Case and plan discussed with the patient's nurse at bedside. Continue Asa, statin, BB, Cardizem, heparin gtt. If no procedures planned pt should be transitioned to an oral anticoagulant. Stop IV rocephin after todays dose. D/C antibiotics for UTI. Pt completed course. 1. Non-ST segment elevation MA 2. Atrial fibrillation with rapid ventricular rate The patient presented with abdominal pain as mentioned above. Troponins were elevated at 2.0 and showed an up trend. I do not see the initial EKG in the chart however as per documentation initial EKG showed a right bundle branch block but no acute findings concerning for ischemia or an infarction. Cardiology was consulted to evaluate the patient. Currently the patient is on aspirin, metoprolol, statin, heparin drip. 2D echocardiogram was done which shows preserved LV function with an ejection fraction of approximately 60%. Diltiazem drip and sotalol have also been started by the cardiology team as the patient went into atrial fibrillation with rapid ventricular rate. We will follow-up with cardiology for the recommendations. Continue to monitor on telemetry, current heart rate in the low 100s. Monitor electrolytes and replace as needed. 3. UTI I do not believe the patient has pyelonephritis. Urine culture shows e coli. Continue IV Rocephin for today, will discontinue tomorrow. 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 No intervention recommended for now. We will follow-up final results of cultures. 4. Acute kidney injury Resolved after the initiation of IV fluids. 5. Chronic back pain Continue current pain medication regimen DVT prophylaxis, patient is currently on heparin drip.
--- NOTE | 2018-10-11 17:57 | ECG ---
Date Performed: 10/11/2018 Time Performed: 10:43:20 PTAGE: 83 years EKG: ATRIAL FIBRILLATION RIGHT BUNDLE BRANCH BLOCK ABNORMAL ECG PREVIOUS TRACING : 10/10/2018 11.51 Since the previous tracing, no significant change noted DOCTOR: Jf Acosta Interpretating Date/Time 10/11/2018 17:56:07
[2018-10-12 04:43] LABS: Calcium 7.6 mg/dL (8.5-10.1); Carbon Dioxide 25.9 meq/L (21.0-32.0); Magnesium 2.1 mg/dL (1.5-2.5); Phosphorus 2.7 mg/dL (2.5-4.9); Potassium 4.5 meq/L (3.5-5.1)
[2018-10-12 04:44] LABS: Carbon Dioxide 25.9 meq/L (21.0-32.0); Potassium 4.4 meq/L (3.5-5.1)
[2018-10-12] MEDS: dilTIAZem 30 MG Tablet PO SCH ×3 (04:54→21:23)
[2018-10-12] MEDS: Enoxaparin Inj 40 MG/0.4 ML Syringe SQ SCH ×2 (06:43→17:24)
--- NOTE | 2018-10-12 10:37 | ECG ---
Date Performed: 10/12/2018 Time Performed: 07:14:53 PTAGE: 83 years EKG: ATRIAL FIBRILLATION WITH RAPID VENTRICULAR RESPONSE RIGHT BUNDLE BRANCH BLOCK ABNORMAL ECG PREVIOUS TRACING : 10/11/2018 10.43 No significant change from previous tracing noted. DOCTOR: Gerardo Allan Interpretating Date/Time 10/12/2018 10:35:32
--- NOTE | 2018-10-12 11:16 | P.PNIM ---
Subjective Interval history: No acute complaints or distress in this patient today. She remains in atrial fibrillation but is rate controlled now. No complaints of chest pain. Today she requests a multivitamin. Physical Exam Vital signs: Last Vital Signs Temp 98.9 F 10/12/18 08:00 Pulse 90 10/12/18 08:19 Resp 28 H 10/12/18 08:19 BP 111/59 L 10/12/18 08:19 Pulse Ox 90 L 10/12/18 08:19 Intake & Output 10/10/18 10/11/18 10/12/18 10/13/18 06:59 06:59 06:59 06:59 Intake Total 3495 / 3495 1610 / 1610 940 / 940 Output Total 975 / 975 805 / 805 Balance 2520 / 2520 805 / 805 940 / 940 Weight 59.7 kg 59.2 kg 59.6 kg Narrative: GENERAL: NAD, A&Ox3 HEAD: Normocephalic. NECK: Supple, trachea midline. No lymphadenopathy. EYES: No scleral icterus. No injection or drainage. CARDIOVASCULAR: Regular rate and rhythm without murmurs, gallops, or rubs. RESPIRATORY: Breath sounds equal bilaterally. No accessory muscle use. GASTROINTESTINAL: Abdomen soft, non-tender, nondistended. MUSCULOSKELETAL: No cyanosis, or edema. SKIN: Warm and dry. NEURO: No focal neurological deficits. Results Labs CBC & Chem 7: 10/10/18 05:10 10/12/18 03:50 Assessment and Plan Plan 83-year-old female with a history of hip fracture otherwise no other documented past medical history. The patient presented to our hospital with abdominal pain and hypertensive emergency. She was subsequently found to have an elevated troponin. During this hospitalization the patient was also found to be in atrial fibrillation with rapid ventricular rate and cardiology has been monitoring the patient. Non-ST segment elevation DE Atrial fibrillation with rapid ventricular rate Now rate controlled Continue Cardizem Follow on telemetry Cardiology following Monitor electrolytes and keep these balance Continue aspirin Continue statin Continue beta-denzel Continue Lovenox Urinary tract infection Treatment completed Rocephin discontinued Acute kidney injury Resolved with IV hydration Chronic back pain No change to baseline treatment DVT prophylaxis Heparin drip Progress Note: Quality VTE Deep Vein Thrombosis/Pulmonary Embolism Present on Admission: No
--- NOTE | 2018-10-12 13:55 | P.PNCA ---
Subjective Interval history: Patient doing well, no acute complaints. Pt denies any chest pain or SOB, pending transfer to step down. HR better. Medications and Allergies Allergies Allergy/AdvReac Type Severity Reaction Status Date / Time ciprofloxacin [From Cipro] Allergy Rash Verified 10/07/18 07:55 Home Medications Medication Instructions Recorded Confirmed Type hydrocodone-acetaminophen 1 tab PO Q4-6H PRN 10/07/18 10/09/18 History tetrahydrozoline-zinc [Eye 10/07/18 History Drops(tetrahydroz-zn sulf)] Active Medications: Active Medications Acetaminophen (Tylenol) 650 mg PO Q6HR PRN PRN Reason: PAIN SCALE 1 TO 2 Hydrocodone Bitart/Acetaminophen ([place] 10/325) 1 tab PO Q6H PRN PRN Reason: PAIN SCALE 6 TO 10 Last Admin: 10/11/18 14:37 Dose: 1 tab Aspirin (Aspirin Chew) 81 mg PO DAILY [facility] Last Admin: 10/12/18 08:59 Dose: 81 mg Atorvastatin Calcium (Lipitor) 40 mg PO HS [facility] Last Admin: 10/11/18 20:23 Dose: 40 mg Cyclobenzaprine HCl (Flexeril) 5 mg PO Q8H PRN PRN Reason: CRAMPS Diltiazem HCl (Cardizem) 30 mg PO Q8H [facility] Last Admin: 10/12/18 12:04 Dose: 30 mg Enoxaparin Sodium (Lovenox Inj) 40 mg SQ Q12H [facility] Last Admin: 10/12/18 06:43 Dose: 40 mg Multivitamins (Theragran) 1 tab PO DAILY [facility] Naloxone HCl (Narcan Inj) 0.4 mg IV.PUSH UNSCH PRN PRN Reason: SEE LABEL COMMENTS Ondansetron HCl (Zofran Odt) 4 mg PO Q6H PRN PRN Reason: nausea Last Admin: 10/08/18 15:59 Dose: 4 mg Pantoprazole Sodium (Protonix) 40 mg PO DAILY [facility] Last Admin: 10/12/18 08:59 Dose: 40 mg Sodium Chloride (Ns Flush) 2 ml IV.FLUSH BID [facility] Last Admin: 10/12/18 09:00 Dose: 2 ml Sodium Chloride (Ns Flush) 2 ml IV.FLUSH UNSCH PRN PRN Reason: FLUSH AFTER USING IV ACCESS Sotalol HCl (Betapace) 120 mg PO BID [facility] Last Admin: 10/12/18 08:59 Dose: 120 mg Tramadol HCl (Ultram) 50 mg PO Q4H PRN PRN Reason: PAIN SCALE 3 TO 5 Last Admin: 10/08/18 15:55 Dose: 50 mg Physical Exam Vital signs: Vital Signs 10/11/18 14:00 10/11/18 14:18 10/11/18 14:37 Temperature Pulse Rate 112 H 117 H Respiratory Rate 32 H 21 26 H Blood Pressure 139/62 Pulse Oximetry 93 L 95 10/11/18 14:48 10/11/18 15:00 10/11/18 15:11 Temperature Pulse Rate 119 H 113 H Respiratory Rate 29 H 34 H 18 Blood Pressure 121/95 H Pulse Oximetry 85 L 85 L 10/11/18 15:23 10/11/18 15:48 10/11/18 16:00 Temperature 98.1 F Pulse Rate 124 H 109 H 102 H Respiratory Rate 32 H 28 H 28 H Blood Pressure 123/79 117/91 H Pulse Oximetry 95 95 10/11/18 18:00 10/11/18 19:00 10/11/18 19:15 Temperature Pulse Rate 99 H 103 H Respiratory Rate 33 H Blood Pressure Pulse Oximetry 91 L 85 L 10/11/18 19:37 10/11/18 19:48 10/11/18 20:00 Temperature 98.8 F Pulse Rate 104 H 104 H Respiratory Rate 23 23 Blood Pressure 118/58 L 104/51 L Pulse Oximetry 93 L 93 L 10/11/18 20:18 10/11/18 20:48 10/11/18 21:00 Temperature Pulse Rate 108 H 106 H 105 H Respiratory Rate 22 23 23 Blood Pressure 105/58 L 113/69 Pulse Oximetry 94 L 84 L 98 10/11/18 21:18 10/11/18 21:48 10/11/18 22:00 Temperature Pulse Rate 108 H 100 H 108 H Respiratory Rate 22 24 23 Blood Pressure 124/56 L 116/72 Pulse Oximetry 99 97 98 10/11/18 22:18 10/11/18 22:53 10/11/18 23:00 Temperature Pulse Rate 110 H 126 H 108 H Respiratory Rate 24 26 H Blood Pressure 113/58 L 119/58 L Pulse Oximetry 96 84 L 97 10/11/18 23:18 10/11/18 23:48 10/12/18 00:00 Temperature 98.6 F Pulse Rate 108 H 92 H 98 H Respiratory Rate 24 24 27 H Blood Pressure 131/79 128/67 Pulse Oximetry 98 96 96 10/12/18 00:16 10/12/18 00:52 10/12/18 01:00 Temperature Pulse Rate 87 91 H Respiratory Rate 25 H 28 H Blood Pressure 117/82 Pulse Oximetry 96 88 L 10/12/18 02:00 10/12/18 03:00 10/12/18 03:03 Temperature Pulse Rate 100 H 103 H 105 H Respiratory Rate 20 22 20 Blood Pressure 148/71 H Pulse Oximetry 98 97 93 L 10/12/18 04:00 10/12/18 05:00 10/12/18 05:12 Temperature Pulse Rate 104 H 102 H 108 H Respiratory Rate 23 22 22 Blood Pressure 107/63 Pulse Oximetry 96 94 L 94 L 10/12/18 06:00 10/12/18 06:45 10/12/18 08:00 Temperature 98.9 F Pulse Rate 104 H 92 H 84 Respiratory Rate 18 23 Blood Pressure Pulse Oximetry 95 95 10/12/18 08:19 10/12/18 12:00 10/12/18 12:01 Temperature Pulse Rate 90 108 H 102 H Respiratory Rate 28 H 26 H 25 H Blood Pressure 111/59 L 115/69 Pulse Oximetry 90 L 90 L 91 L Intake & Output 10/11/18 10/12/18 10/12/18 18:59 06:59 18:59 Intake Total 940 / 940 Balance 940 / 940 Weight 59.6 kg Intake: IV 260 / 260 Potassium Phosphate Inj 30 MMOL 260 / 260 In NS Inj 250 ML @ 86.667 mls/ hr IV.SIG NOW ONE Rx#:[id number] Oral 680 / 680 Other: # Voids 5 6 Date of Last Bowel Movement 10/11/18 10/12/18 10/12/18 # Bowel Movements 3 1 # Incontinent Bowel Movements 2 - Constitutional no acute distress, thin - Routine HEENT Exam Head: Present: normocephalic Eye: Present: EOMI, PERRL, normal accommodation ENT: Present: mucous membranes moist - Routine Neck Exam Present: supple - Routine Respiratory Exam Present: diminished air movement - Routine Cardiovascular Exam Present: tachycardia, irregular rhythm - Routine Abdominal Exam Present: soft - Routine Skin Exam Present: intact - Routine Neurological Exam Present: alert, oriented X3 - Routine Psychiatric Exam Present: normal affect Results 10/10/18 05:10 10/12/18 03:50 Comprehensive Metabolic Panel 10/11/18 10/12/18 10/12/18 Range/Units 05:15 03:50 03:50 Sodium 140 139 139 (136-145) meq/L Potassium 3.6 4.5 D 4.4 (3.5-5.1) meq/L Chloride 106 107 107 (98-107) meq/L Carbon Dioxide 27.6 25.9 25.9 (21.0-32.0) meq/L BUN 13 16 16 (7-18) mg/dL Creatinine 0.91 0.82 0.77 (0.50-1.00) mg/dL Calcium 8.2 L 7.6 L 8.0 L (8.5-10.1) mg/dL Intake and Output 10/11/18 10/12/18 10/12/18 22:59 06:59 14:59 Intake Total 940 / 940 Balance 940 / 940 Intake: IV 260 / 260 Potassium Phosphate Inj 30 MMOL 260 / 260 In NS Inj 250 ML @ 86.667 mls/ hr IV.SIG NOW ONE Rx#:[id number] Oral 680 / 680 Other: # Voids 5 6 Date of Last Bowel Movement 10/11/18 10/12/18 10/12/18 # Bowel Movements 3 1 # Incontinent Bowel Movements 2 Weight 59.6 kg Assessment and Plan - Plan Assessment Atrial fibrillation with rvr Plan Patient remains in atrial fibrillation with intermittent high ventricular response rate, continue higher dose of sotalol, Cardizem added for better heart rate control. If her A. fib remains difficult to control then consideration for a transesophageal echocardiogram/electrical cardioversion should be entertained. Replace electrolytes and follow them. Continue anticoagulation with Lovenox subcu. Heparin DC'd. Continue low-dose ASA. Denies angina. Continue Lipitor. 2D echo showed preserved LV function EF 60-65%, mild mitral regurgitation and mild aortic regurgitation. We will continue with current cardiac treatment plan and treat conservatively [ also per her wishes] at this time. Continue to monitor patient on telemetry. We will continue to monitor patient during her hospitalization. The patient was seen and evaluated by Dr. Anna who participated in care, management and decision making. The exam, history, and the medical decision-making described in the above note were completed with the assistance of the mid-level provider. I reviewed and agree with the findings presented. I attest that I had a [id number] encounter with the patient on the same day, and personally performed and documented my assessment and findings in the medical record. Pt not known to me prior. Pt has had a NSTEMI with conservative rx as per Dr Salazar, will treat medically as pt may have demand ischemia from a rapid rate and pt will follow with Dr Salazar. Code Status: Full Code Discussed Condition With: Dr. Anna, RN
[2018-10-13] MEDS: dilTIAZem 30 MG Tablet PO SCH ×2 (04:44→11:58)
[2018-10-13] MEDS: Enoxaparin Inj 40 MG/0.4 ML Syringe SQ SCH ×2 (06:49→17:15)
--- NOTE | 2018-10-13 15:56 | XR ---
EXAM DATE: 10/13/2018 3:52 PM EST AGE/SEX: 83 years / Female INDICATIONS: Left hip pain from prior injury. CLINICAL DATA: This is the patient's initial encounter. Patient reports that signs and symptoms have been present for 1 day and indicates a pain score of 8/10. MEDICAL/SURGICAL HISTORY: None. . Left hip surgery. COMPARISON: No prior exams available for comparison. FINDINGS: There is a triple lag screw fixation proximal left femur with mild residual deformity at prior fractu re. Moderate osteoarthritis of the hip joint. No acute fracture identified. CONCLUSION: Prior hip fixation. No new fracture identified. Electronically signed by: Kirby Fried MD Board Certified Radiologist 10/13/2018 3:55 PM EST
--- NOTE | 2018-10-13 17:59 | P.DCO ---
Physical Therapy Order: Evaluate and treat Home Health Nursing Order: Medical education, Signs/symptoms of disease process, Medication education-adverse effect and Nursing assessment with vital signs Case Management Consult Case Management Consult-Home Health: Yes I have seen patient Betina Narvaez on 10/13/18. My clinical findings support the need for the requested home health care services because: Limited mobility due to disease progression, Deconditioned with increased weakness, Limited ability to care for self and High risk of falls I certify that my clinical findings support that this patient is homebound because: Unsteady gait/balance, Unsafe to leave home unassisted and Unable to use public transportation
--- NOTE | 2018-10-13 18:02 | P.DS ---
DS: Providers Date of admission: 10/12/18 08:52 Primary care physician: Taco Middleton MD Consults: 10/07/18 12:35 Consult to Urology Routine Consulting Provider: Florencio Martinez Reason for Consultation: symptomatic left sided renal pelvis dilatation Notified:: Office Spoke with:: March Notified:: 10/07/18 Time Notified:: 12:48 Ordering Provider: CORDELL 10/07/18 14:20 Consult to Cardiology Routine Consulting Provider: Roslyn Salazar Does the patient have a Sales Promotion Representative who follows them?: No Preferred Wardrobe Consultant:: [employer]arry Supervisor Physician Reason for Consultation: Trops > 2.00 w/ substantial N/V Notified:: Office Spoke with:: Date Notified:: 10/07/18 Time Notified:: 14:23 Ordering Provider: CORDELL Brief History from admission: 83-year-old white female being admitted for abdominal pain. Patient was in her usual state of health until this morning when she experienced experiencing right-sided abdominal pain which at its worst was 10/ 10 intensity. She did have some nausea and self-limited vomiting. Reports that she did not take her hydrocodone on her most recent dose time otherwise. Denies any chest pain shortness of breath. Denies any fevers or chills. Reports she had said substantial urinary urgency but no dysuria or pyuria or stone excretion. Her grandson is at the bedside and says that she is very stubborn about seeking medical attention so he was concerned when she wanted to go to the hospital. In the emergency department and [place] the patient had a very minimal white count elevation but noted to have innumerable white blood cells on her urine. Noted to have acute kidney injury with creatinine about 1.2. Noted to be very hypertensive with BP is greater than 200s/100s. Patient was given IV morphine and IV antihypertensives and given Rocephin as well as aspirin. EKG which adamantly reviewed obtained from the ED shows right bundle branch block but no acute findings concerning for ischemia or infarction. 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 Now that the patient is [facility], she feels much better, still has some right-sided pain, and her second troponin is now greater than 2.0. Patient states she takes hydrocodone chronically for osteoarthritis. Says she has history of multiple fractures due to osteoporosis. Says she sees urology for her chronic left renal pelvis issues. DS: Summary 83-year-old female with a history of hip fracture who was admitted with abdominal pain following urinary tract infection. She was found to be in atrial fibrillation with RVR. And had elevated troponin levels. She received a complete course of Rocephin IV for management of her urinary tract infection. Abdominal pain was a partial bowel obstruction which resolved with standard care. Atrial fibrillation with RVR was rate controlled, her rhythm remains irregular. Cardiology recommends conservative management for a patient of her age, she has no active chest pain. She is asking to go home. She has a follow- up with cardiology for possible cardioversion in the future. [facility] to check in on her A. fib as well as home health PT to work to improve her balance and abilities. Time Spent with Patient Total time spent providing and/or coordinating discharge services: Less than 30 minutes Quality: VTE Deep Vein Thrombosis/Pulmonary Embolism Present on Admission: No Results Impressions ITS Impressions Hip X-Ray 10/13/18 00:00 CONCLUSION: Prior hip fixation. No new fracture identified. Discharge Plan Discharge Disposition Patient Disposition: Disch W/Home Health Service Discharge Condition Condition: Stable Discharge Order Discharge Orders: Discharge Order (Routine); Ordered 10/13/18 Ordered By: Cachorro Young Discharge Details Anticipated Discharge Date: 10/13/18 Discharge Comment: OK to arrange home healthcare after discharge. Physicians Team Primary Care Provider: Taco Middleton Attending Provider: Cachorro Young Other Providers: Florencio Martinez ; Roslyn Salazar Rxs /Orders / Referrals /Forms Prescriptions: New atorvastatin 40 mg Tablet 40 mg PO HS Qty: 30 RF: 0 sotalol [Sorine] 80 mg Tablet 120 mg PO BID Qty: 60 RF: 0 diltiazem HCl 30 mg Tablet 30 mg PO Q8H Qty: 90 RF: 0 apixaban [Eliquis] 2.5 mg tablet 2.5 mg PO BID Qty: 60 RF: 0 Continue hydrocodone-acetaminophen 5-325 mg Tablet 1 tab PO Q4-6H PRN (Reason: Pain) RF: 0 tetrahydrozoline-zinc [Eye Drops(tetrahydroz-zn sulf)] 0.05-0.25 % Drops RF: 0 Referrals: Taco Middleton MD [Primary Care Provider] - See Instructions (OFFICE CLOSED PLEASE CALL FOR AN APPOINTMENT ) Discharge Instructions Patient Printed Instructions: Diltiazem (By mouth), Atorvastatin (By mouth), Sotalol (By mouth), Apixaban (By mouth) Post Discharge Care Plan Care Plan Goals: Your Health Problems: Goals to Promote Your Health: * To prevent worsening of your condition * To maintain your health at the optimal level Directions to Meet Your Goals: * Take your medications as prescribed * Follow your dietary instruction * Follow activity as directed * Keep your appointments as scheduled * Take your immunizations and boosters as scheduled * If your symptoms worsen call your PCP * If no PCP go to Urgent Care or Emergency Room Smoking is dangerous to your health. Avoid second hand smoke. You may reach the 24-hour crisis hotline for domestic abuse at . Discharge Interventions Interventions: Discharge Planning - Case Management Last Done: 10/12/18 14:05 Status ED Status: Admitted Observation Patient
== END 2018-10-13 18:16 | disposition home health service (06) | DRG 689 ==
LOC: NEDDLT 07:39 → N03 07:39 → N04 10-12 17:41 → N03 10-12 18:01 → N04 10-12 18:27
PROVIDERS: ADMIT Family Medicine; ATTEND Family Medicine
DX: I16.1 Hypertensive emergency; N13.6 Pyonephrosis; K56.609 Unspecified intestinal obstruction, unspecified as to partial versus complete obstruction; I08.0 Rheumatic disorders of both mitral and aortic valves; M54.9 Dorsalgia, unspecified; Z79.891 Long term (current) use of opiate analgesic; I48.91 Unspecified atrial fibrillation; G89.29 Other chronic pain; R11.2 Nausea with vomiting, unspecified; I21.4 Non-ST elevation (NSTEMI) myocardial infarction; M19.90 Unspecified osteoarthritis, unspecified site; M81.0 Age-related osteoporosis without current pathological fracture; R31.9 Hematuria, unspecified; K59.00 Constipation, unspecified; N17.9 Acute kidney failure, unspecified; I45.10 Unspecified right bundle-branch block
CPT/HCPCS: 73502; 74176; 80048; 80053; 80061; 81001; 82272; 83690; 83735; 84100; 84443; 84484; 85025; 85027; 85610; 85730; 87077; 87086; 87186; 90765; 90775; 90776; 93005; 93306; 96365; 96375; 96376; 99291; J0696; J1644; J1650; J2212; J2270; J2405; J3480; J7030; J7050